=== PATIENT | female | born 1940 | race Native Hawaiian/Other Pacific Islander ===

== ENCOUNTER 2017-03-10 02:06 | Emergency (ER) | payer OTHER ==
[2017-03-10 02:22] VITALS: BMI 22.4
--- NOTE | 2017-03-10 02:24 | PDOC ---
History of Present Illness - History of Present Illness Initial Comments: 03/10/17 02:31 The patient is a 76 year old female, with a significant past medical history of HIV, VAD s/p stent, CHF, hypertension, dyslipidemia, COPD, diabetes, who presents to the emergency department for persistent vomiting with generalized weakness and fatigue since Wednesday. The patient reports being evaluated for these symptoms at [facility] on Wednesday and was discharged home. The patient reports numerous episodes of vomiting and states she is unable to tolerate PO. The patient also complains of mild, diffuse abdominal pain. She denies recent travels or sick contact. She reports recently changing her medication. She denies chest pain, shortness of breath, headache and dizziness. She denies fever, chills, diarrhea and constipation. She denies dysuria, frequency, urgency and hematuria. Allergies: as per nursing note PCP - Dr. Young <Linda Cox - Last Filed: 03/10/17 02:31> - General History Source: Patient, Family <Giancarlo Ko - Last Filed: 03/10/17 05:33> - General Chief Complaint: Nausea/Vomiting Stated Complaint: ABD PAIN Time Seen by Provider: 03/10/17 02:14 Past History <Linda Cox - Last Filed: 03/10/17 02:31> - Past Medical History Anemia: No Asthma: Yes Cancer: Yes (Breast) Cardiac Disorders: Yes CVA: Yes COPD: Yes CHF: Yes Diabetes: Yes GI Disorders: Yes (diverticulitsis) HTN: Yes Hypercholesterolemia: Yes HIV: Yes Suicide Attempt (Hx): No Seizures: Yes - Surgical History Abdominal Surgery: Yes (3 hernia surgery) Cardiac Surgery: Yes (1 stent 11-07-07) Orthopedic Surgery: Yes (herniated disc) - Immunization History Immunization Up to Date: No - Psycho/Social/Smoking Cessation Hx Anxiety: No Suicidal Ideation: No Smoking History: Former smoker Have you smoked in the past 12 months: No Number of Cigarettes Smoked Daily: 2 If you are a former smoker, when did you quit?: 1998 Information on smoking cessation initiated: No Hx Alcohol Use: No Drug/Substance Use Hx: No Substance Use Type: None Hx Substance Use Treatment: No <Giancarlo Ko - Last Filed: 03/10/17 05:33> - Past Medical History Allergies/Adverse Reactions: Allergies Allergy/AdvReac Type Severity Reaction Status Date / Time levofloxacin [From Levaquin] Allergy Unknown Verified 01/07/16 16:25 Penicillins Allergy Unknown Verified 01/07/16 16:25 phenytoin sodium Allergy Unknown Verified 01/07/16 16:25 [From Dilantin] phenytoin sodium extended Allergy Unknown Verified 01/07/16 16:25 [From Dilantin] sulfamethoxazole Allergy Unknown Verified 01/07/16 16:25 [From Bactrim] trimethoprim [From Bactrim] Allergy Unknown Verified 01/07/16 16:25 morphine Allergy Verified 01/07/16 16:25 Home Medications: Ambulatory Orders Efavirenz [Sustiva] 600 mg PO HS 02/11/15 Lamivudine/Zidovudine [Combivir Tablet] 1 each PO BID 02/11/15 Potassium Chloride [K-Dur] 20 meq PO DAILY 02/11/15 Sennosides [Senna -] 1 tab PO TID 02/11/15 Valsartan/Hydrochlorothiazide [Diovan Hct 160-25 mg Tablet] 1 tab PO DAILY 02/11 Levetiracetam [Keppra -] 750 mg PO BID #60 tablet 02/14/15 Pantoprazole Sodium [Protonix] 40 mg PO DAILY #60 tablet. 10/12/15 Zolpidem Tartrate [Ambien] 10 mg PO HS PRN #10 tablet 10/12/15 Cefuroxime Axetil [Ceftin -] 500 mg PO BIDPC #14 tablet 01/11/16 Lidocaine 5% Patch [Lidoderm -] 1 patch TP DAILY #30 patch 01/11/16 Ondansetron [Zofran *Odt*] 4 mg SL TID #30 od.tablet 03/10/17 Review of Systems - Review of Systems Able to Perform ROS?: Yes Comments:: 03/10/17 02:34 CONSTITUTIONAL: (+) generalized weakness, malaise,Absent: fever, chills, diaphoresis, loss of appetite HEENT: Absent: rhinorrhea, nasal congestion, throat pain, throat swelling, difficulty swallowing, mouth swelling, ear pain, eye pain, visual Changes CARDIOVASCULAR: Absent: chest pain, syncope, palpitations, irregular heart rate, lightheadedness , peripheral edema RESPIRATORY: Absent: cough, shortness of breath, dyspnea with exertion, orthopnea, wheezing, stridor, hemoptysis GASTROINTESTINAL: (+) abdominal pain, nausea, vomiting, Absent: abdominal distension, diarrhea, constipation, melena, hematochezia GENITOURINARY: Absent: dysuria, frequency, urgency, hesitancy, hematuria, flank pain, genital pain MUSCULOSKELETAL: Absent: myalgia, arthralgia, joint swelling SKIN: Absent: rash, itching, pallor HEMATOLOGIC/IMMUNOLOGIC: Absent: easy bleeding, easy bruising, lymphadenopathy, frequent infections ENDOCRINE: Absent: unexplained weight gain, unexplained weight loss, heat intolerance, cold intolerance NEUROLOGIC: Absent: headache, focal weakness or paresthesias, dizziness, unsteady gait, seizure, mental status changes, bladder or bowel incontinence PSYCHIATRIC: Absent: anxiety, depression, suicidal or homicidal ideation, hallucinations. <Linda Cox - Last Filed: 03/10/17 02:31> *Physical Exam - Vital Signs Last Vital Signs Temp Pulse Resp BP Pulse Ox 97.9 F 67 19 140/75 98 03/10/17 02:13 03/10/17 02:13 03/10/17 02:13 03/10/17 02:13 03/10/17 02:13 - Physical Exam Comments: 03/10/17 02:35 GENERAL: (+) Patient is in mild to moderate distress. Well developed, well nourished. Awake and alert. HEENT: (+) dry mucous membranes. Normocephalic, atraumatic. PERRLA, EOMI. No conjunctival pallor. Sclera are non-icteric. Oropharynx is clear. NECK: Supple. Full ROM. No JVD. Carotid pulses 2+ and symmetric, without bruits. No thyromegaly. No lymphadenopathy. CARDIOVASCULAR: Regular rate and rhythm. No murmurs, rubs, or gallops. Distal pulses are 2+ and symmetric. PULMONARY: No evidence of respiratory distress. Lungs clear to auscultation bilaterally. No wheezing, rales or rhonchi. ABDOMINAL: Soft. Non-tender. Non-distended. No rebound or guarding. No organomegaly. Normoactive bowel sounds. MUSCULOSKELETAL Normal range of motion at all joints. No bony deformities or tenderness. No CVA tenderness. EXTREMITIES: No cyanosis. No clubbing. No edema. No calf tenderness. SKIN: Warm and dry. Normal capillary refill. No rashes. No jaundice. NEUROLOGICAL: Alert, awake, appropriate. Cranial nerves 2-12 intact. Normoreflexic in the upper and lower extremities. Normal speech. Toes are down-going bilaterally. PSYCHIATRIC: Cooperative. Good eye contact. Appropriate mood and affect. <Linda Cox - Last Filed: 03/10/17 02:31> - Vital Signs Last Vital Signs Temp Pulse Resp BP Pulse Ox 97.9 F 67 19 140/75 98 03/10/17 02:13 03/10/17 02:13 03/10/17 02:13 03/10/17 02:13 03/10/17 02:13 <Giancarlo Ko - Last Filed: 03/10/17 05:33> ED Treatment Course - LABORATORY CBC & Chemistry Diagram: 03/10/17 02:38 03/10/17 03:17 <Giancarlo Ko - Last Filed: 03/10/17 05:33> Medical Decision Making - Medical Decision Making 03/10/17 05:33 Dr. Ko: The scribe's documentation has been prepared under my direction and personally reviewed by me in its entirery. I confirm that the note above accurately reflects all work, treatment, procedures, and medical decision making performed by me. <Giancarlo Ko - Last Filed: 03/10/17 05:33> *DC/Admit/Observation/Transfer - Attestations Scribe Attestion: 03/10/17 02:35 Documentation prepared by Linda Cox, acting as manager medical writing for Giancarlo Ko DO <Linda Cox - Last Filed: 03/10/17 02:31> - Discharge Dispostion Admit: No <Giancarlo Ko - Last Filed: 03/10/17 05:33> Diagnosis at time of Disposition: Abdominal pain Qualifiers: Abdominal location: generalized Qualified Code(s): R10.84 - Generalized abdominal pain - Discharge Dispostion Disposition: HOME Condition at time of disposition: Improved - Prescriptions Prescriptions: Ondansetron [Zofran *Odt*] 4 mg SL TID #30 od.tablet - Referrals Referrals: Tom Young MD [Primary Care Provider] - - Patient Instructions Printed Discharge Instructions: DI for Nausea -- Adult, DI for Vomiting -- Adult, DI for Abdominal Pain-Adult
[2017-03-10] MEDS ORDERED: SODIUM CHLORIDE 1,000 ML IV STA (02:25)
[2017-03-10] MEDS ORDERED: ONDANSETRON 4 MG/2 ML VIAL IVPUSH STA (02:26)
[2017-03-10] MEDS ORDERED: HYDROmorphone HCL CARPU-JECT 1 MG/1 ML DISP.SYRIN IVPUSH ONE (02:27)
[2017-03-10] MEDS ORDERED: ONDANSETRON 4 MG/2 ML VIAL ONE (02:35)
[2017-03-10] MEDS ORDERED: HYDROmorphone HCL CARPU-JECT 1 MG/1 ML DISP.SYRIN ONE (02:35)
[2017-03-10 02:46] LABS: MCH 28.2 pg (25.7-33.7); MCHC 33.2 g/dl (32.0-36.0); MEAN CELL VOLUME 85.1 fl (80-96); MEAN PLT VOLUME 8.1 fl (7.5-11.1); PLATELET COUNT 175 K/MM3 (134-434); RDW 19.6 % (11.6-15.6)
[2017-03-10 02:54] LABS: WHITE BLOOD COUNT 1.9 K/mm3 (4.0-10.0)
[2017-03-10 03:00] LABS: INR 1.14 (0.82-1.09); PROTHROMBIN TIME (PATIENT) 12.6 SEC (9.98-11.88)
[2017-03-10 04:17] LABS: ALBUMIN 2.8 g/dl (3.4-5.0); ANION GAP 11 (8-16); CALCIUM 8.1 mg/dL (8.5-10.1); CO2 17 mmol/L (21-32); CREATININE 0.9 mg/dL (0.55-1.02); GLUCOSE,RANDOM 101 mg/dL (74-106); MAGNESIUM 1.9 mg/dL (1.8-2.4); SGOT/AST 20 U/L (15-37); SGPT/ALT 27 U/L (12-78)
[2017-03-10 04:19] LABS: ALK PHOS 116 U/L (45-117); BILIRUBIN,TOTAL 0.4 mg/dL (0.2-1.0); TOT PROT 6.3 g/dl (6.4-8.2)
[2017-03-10] MEDS ORDERED: POTASSIUM CHLORIDE TABS 20 MEQ TABLET.ER (FP) PO ONE ×2 (04:48→04:56)
[2017-03-10 04:59] LABS: URINE APPEARANCE CLEAR; URINE BILIRUBIN NEGATIVE (NEGATIVE); URINE COLOR STRAW; URINE GLUCOSE (UA) NEGATIVE (NEGATIVE); URINE KETONE NEGATIVE (NEGATIVE); URINE LEUK ESTERASE NEGATIVE (NEGATIVE); URINE NITRITE NEGATIVE (NEGATIVE); URINE PROTEIN NEGATIVE (NEGATIVE); URINE UROBILINOGEN NEGATIVE E.U./dl (0.2-1.0)
[2017-03-10 05:08] LABS: URINE BLOOD 1+ (NEGATIVE)
[2017-03-10 05:10] LABS: URINE BACTERIA RARE /hpf (NONE SEEN); URINE MUCUS RARE; URINE RBC 4 /hpf (0-3); URINE WBC 1 /hpf (3-5)
[2017-03-10] MEDS ORDERED: KETOROLAC TROMETHAMINE 30 MG/1 ML VIAL IVPUSH ONE (05:30)
[2017-03-10] MEDS ORDERED: KETOROLAC TROMETHAMINE 30 MG/1 ML VIAL ONE (05:55)
[2017-03-10 06:09] VITALS: BP 137/76; PULSE 65; TEMP 98.1
== END 2017-03-10 06:28 | disposition home or self-care (01) ==
LOC: JER 02:06 → SUPCPDRO 02:06 → JER 06:28
PROC: 3E033NZ Introduction of Analgesics, Hypnotics, Sedatives into Peripheral Vein, Percutaneous Approach (ICD-10-PCS; principal; 2017-03-10)
PROC: 3E0333Z Introduction of Anti-inflammatory into Peripheral Vein, Percutaneous Approach (ICD-10-PCS; 2017-03-10)
PROC: 3E033GC Introduction of Other Therapeutic Substance into Peripheral Vein, Percutaneous Approach (ICD-10-PCS; 2017-03-10)
PROC: 3E0337Z Introduction of Electrolytic and Water Balance Substance into Peripheral Vein, Percutaneous Approach (ICD-10-PCS; 2017-03-10)
DX: R10.84 Generalized abdominal pain (principal); J45.909 Unspecified asthma, uncomplicated; I10 Essential (primary) hypertension; E78.00 Pure hypercholesterolemia, unspecified; Z21 Asymptomatic human immunodeficiency virus [HIV] infection status; E11.9 Type 2 diabetes mellitus without complications
CPT/HCPCS: 36415; 80053; 81003; 81015; 83690; 83735; 85025; 85610; 87086; 96361; 96374; 96375; 99283-25

== ENCOUNTER 2017-03-16 14:57 | Inpatient (IN) | payer OTHER ==
[2017-03-16 15:05] VITALS: BMI 20.6
--- NOTE | 2017-03-16 15:44 | PDOC ---
History of Present Illness - General History Source: Patient Exam Limitations: No Limitations - History of Present Illness Initial Comments: 03/16/17 17:06 The patient is a 76 year old female, with a significant past medical history of Breast CA, asthma, CVA, COPD, CHF, diabetes, HTN, HIV, HLD, diverticulitis, seizures and neuropathy,neck and back herniated disc, who presents to the emergency department after being sent by her PMD for evaluation. She reports that she was at [facility] last week for abdominal pain, nausea and vomiting. She was diagnosed with low blood count and was sent home. She followed up with her PMD who sent her to the ED for further evaluation. She reports that currently she does not have nausea or vomit and is able to eat without any complications. She states that she currently has back pain and lung pain. She also notes that she also has frequency associated with her chief complaint. She states that she took 2 Advils today without any relief of her symptoms. The patient denies chest pain, shortness of breath, headache and dizziness. Denies fever, chills, diarrhea and constipation. Denies dysuria, frequency, urgency and hematuria. Allergies: levofloxacin, dilantin, penicillins, bactrim, potassium chloride, morphine Past surgical history: Cardiac Stent (x1) 11-07-07, abdominal hernia surgery (x3 ), herniated disc surgery. Social history: Former smoker. No alcohol or drug use reported PMD - Dr. Tom Young <Giancarlo Bryant - Last Filed: 03/16/17 17:09> - General History Source: Patient Exam Limitations: No Limitations <Doreen Alvarez - Last Filed: 03/16/17 17:45> - General Chief Complaint: Pain Stated Complaint: ABD PAIN (PCP SENT FOR ADMIN) Time Seen by Provider: 03/16/17 15:40 Past History <Giancarlo Bryant - Last Filed: 03/16/17 17:09> - Past Medical History Anemia: No Asthma: Yes Cancer: Yes (Breast) Cardiac Disorders: Yes CVA: Yes COPD: Yes CHF: Yes Diabetes: Yes GI Disorders: Yes (diverticulitsis) HTN: Yes Hypercholesterolemia: Yes HIV: Yes Suicide Attempt (Hx): No Seizures: Yes Other medical history: neuropathy,neck and back herniated disc, o.p - Surgical History Abdominal Surgery: Yes (3 hernia surgery) Cardiac Surgery: Yes (1 stent 11-07-07) Orthopedic Surgery: Yes (herniated disc) - Immunization History Immunization Up to Date: No - Psycho/Social/Smoking Cessation Hx Anxiety: No Suicidal Ideation: No Smoking History: Former smoker Have you smoked in the past 12 months: No Number of Cigarettes Smoked Daily: 2 If you are a former smoker, when did you quit?: 1998 Information on smoking cessation initiated: No Hx Alcohol Use: No Drug/Substance Use Hx: No Substance Use Type: None Hx Substance Use Treatment: No <Doreen Alvarez - Last Filed: 03/16/17 17:45> - Past Medical History Allergies/Adverse Reactions: Allergies Allergy/AdvReac Type Severity Reaction Status Date / Time levofloxacin [From Levaquin] Allergy Unknown Verified 03/16/17 14:58 Penicillins Allergy Unknown Verified 03/16/17 14:58 phenytoin sodium Allergy Unknown Verified 03/16/17 14:58 [From Dilantin] phenytoin sodium extended Allergy Unknown Verified 03/16/17 14:58 [From Dilantin] sulfamethoxazole Allergy Unknown Verified 03/16/17 14:58 [From Bactrim] trimethoprim [From Bactrim] Allergy Unknown Verified 03/16/17 14:58 morphine Allergy Verified 03/16/17 14:58 potassium chloride Allergy Verified 03/16/17 14:58 Home Medications: Ambulatory Orders Efavirenz [Sustiva] 600 mg PO HS 02/11/15 Lamivudine/Zidovudine [Combivir Tablet] 1 each PO BID 02/11/15 Potassium Chloride [K-Dur] 20 meq PO DAILY 02/11/15 Sennosides [Senna -] 1 tab PO TID 02/11/15 Valsartan/Hydrochlorothiazide [Diovan Hct 160-25 mg Tablet] 1 tab PO DAILY 02/11 Levetiracetam [Keppra -] 750 mg PO BID #60 tablet 02/14/15 Pantoprazole Sodium [Protonix] 40 mg PO DAILY #60 tablet. 10/12/15 Zolpidem Tartrate [Ambien] 10 mg PO HS PRN #10 tablet 10/12/15 Cefuroxime Axetil [Ceftin -] 500 mg PO BIDPC #14 tablet 01/11/16 Lidocaine 5% Patch [Lidoderm -] 1 patch TP DAILY #30 patch 01/11/16 Ondansetron [Zofran *Odt*] 4 mg SL TID #30 od.tablet 03/10/17 Review of Systems - Review of Systems Able to Perform ROS?: Yes Comments:: 03/16/17 17:06 GENERAL/CONSTITUTIONAL: No: fever, chills, weakness, loss of appetite. HEAD, EYES, EARS, NOSE AND THROAT: No: change in vision, ear pain, discharge, sore throat, throat swelling. CARDIOVASCULAR: No: chest pain, lightheadedness, palpitations, syncope RESPIRATORY: No: cough, shortness of breath, wheezing, hemoptysis, stridor. GASTROINTESTINAL: (+) Nausea, vomiting, abdominal cramping. No: diarrhea, rectal bleeding, constipation. GENITOURINARY: No: dysuria, hematuria, frequency, urgency, flank pain. MUSCULOSKELETAL: (+) Back pain. No: neck pain, joint pain, muscle swelling or pain SKIN AND BREASTS: No: lesions, pallor, rash or easy bruising. NEUROLOGIC: No: headache, vertigo, paresthesias, weakness ENDOCRINE: No: unexplained weight gain or loss HEMATOLOGIC/LYMPHATIC: No: anemia, easy bleeding, swelling nodes <Giancarlo Bryant - Last Filed: 03/16/17 17:09> *Physical Exam - Vital Signs Last Vital Signs Temp Pulse Resp BP Pulse Ox 97.5 F L 78 18 143/74 98 03/16/17 15:00 03/16/17 15:00 03/16/17 15:00 03/16/17 15:00 03/16/17 15:00 - Physical Exam Comments: 03/16/17 17:07 GENERAL: The patient is in no acute distress. HEAD: Normal with no signs of trauma. EYES: PERRLA, EOMI, sclera anicteric, conjunctiva clear. ENT: Ears normal, nares patent, oropharynx clear without exudates. Moist mucous membranes. NECK: Normal range of motion, supple without lymphadenopathy, JVD, or masses. LUNGS: Breath sounds equal, clear to auscultation bilaterally. No wheezes, and no crackles. HEART:Regular rate and rhythm, normal S1 and S2 without murmur, rub or gallop. ABDOMEN: Soft, nontender, normoactive bowel sounds. No guarding, no rebound. EXTREMITIES: Normal range of motion, no edema. No clubbing or cyanosis. No erythema, or tenderness. NEUROLOGICAL: Cranial nerves II through XII grossly intact. Normal speech. No focal neurological deficits. MUSCULOSKELETAL: Back non-tender to palpation, no CVA tenderness SKIN: Warm, Dry, normal turgor, no rashes or lesions noted. <Giancarlo Bryant - Last Filed: 03/16/17 17:09> - Vital Signs Last Vital Signs Temp Pulse Resp BP Pulse Ox 97.5 F L 78 18 143/74 98 03/16/17 15:00 03/16/17 15:00 03/16/17 15:00 03/16/17 15:00 03/16/17 15:00 <Doreen Alvarez - Last Filed: 03/16/17 17:45> Heart Score/ECG Review #1 ECG reviewed & interpreted by me at: 16:20 General ECG Interpretation: Sinus Rhythm, Normal Rate, Normal Intervals, No acute ischemic changes <Doreen Alvarez - Last Filed: 03/16/17 17:45> ED Treatment Course - LABORATORY CBC & Chemistry Diagram: 03/16/17 16:30 03/16/17 16:30 - RADIOLOGY Radiograph Interpretation: 03/16/17 17:09 Chest X-Ray Reviewed by: Dr. Trina Carmen Impression: Stable faintly seen pulmonary nodule in the left mid lung, laterally likely representing a granuloma. Otherwise, no acute lung disease is present. <Giancarlo Bryant - Last Filed: 03/16/17 17:09> - LABORATORY CBC & Chemistry Diagram: 03/16/17 16:30 03/16/17 16:30 - RADIOLOGY Radiology Studies Ordered: Category Date Time Status CHEST X-RAY PORTABLE* [RAD] Stat Radiology 03/16/17 15:41 Ordered <Doreen Alvarez - Last Filed: 03/16/17 17:45> Medical Decision Making - Medical Decision Making 03/16/17 15:43 A portion of this note was documented by scribe services under my direction. I have reviewed the details of the note, within reason, and agree with the documentation with the following case summary and management plan written by me. Nursing documentation reviewed and incorporated into medical decision making 03/16/17 17:16 This pt is a 76 yo F w a h/o HIV, CAD s/p stent, CHF, hypertension, dyslipidemia , COPD, diabetes, who presents to the emergency department for persistent vomiting with generalized weakness. She was seen by her PMD who requested that she be admitted Pt denies fevers Pt denies vomiting or diarrhea Pt states she has abd pain Will do labs Pt sent to the ER for admission Pt seen by PMD Will admit Will do CT abd and pelvis 03/16/17 17:38 Laboratory Tests 03/16/17 03/16/17 16:30 16:30 WBC 2.8 L D Hgb 10.0 L Hct 30.9 L Plt Count 174 Sodium 141 Potassium 3.5 Chloride 108 H Carbon Dioxide 20 L Anion Gap 13 BUN 20 H D Creatinine 0.8 Random Glucose 96 Pt seen by PMD Will admit <Doreen Alvarez - Last Filed: 03/16/17 17:45> *DC/Admit/Observation/Transfer - Attestations Scribe Attestion: 03/16/17 17:07 Documentation prepared by Giancarlo Bryant, acting as medical staff coordinator for Doreen Alvarez MD <Giancarlo Bryant - Last Filed: 03/16/17 17:09> - Discharge Dispostion Admit: Yes <Doreen Alvarez - Last Filed: 03/16/17 17:45> Diagnosis at time of Disposition: Gastroparesis, Nausea & vomiting - Discharge Dispostion Condition at time of disposition: Stable - Referrals Referrals: Tom Young MD [Primary Care Provider] -
[2017-03-16 16:42] LABS: MCH 27.8 pg (25.7-33.7); MCHC 32.2 g/dl (32.0-36.0); MEAN CELL VOLUME 86.2 fl (80-96); MEAN PLT VOLUME 7.8 fl (7.5-11.1); PLATELET COUNT 174 K/MM3 (134-434); RDW 18.5 % (11.6-15.6); WHITE BLOOD COUNT 2.8 K/mm3 (4.0-10.0)
[2017-03-16] MEDS ORDERED: HYDROmorphone HCL CARPU-JECT 1 MG/1 ML DISP.SYRIN IVPB ONE (17:04)
[2017-03-16 17:25] LABS: ALBUMIN 2.9 g/dl (3.4-5.0); AMYLASE 89 U/L (25-115); ANION GAP 13 (8-16); CALCIUM 8.6 mg/dL (8.5-10.1); CO2 20 mmol/L (21-32); CREATININE 0.8 mg/dL (0.55-1.02); GLUCOSE,RANDOM 96 mg/dL (74-106); SGOT/AST 38 U/L (15-37); SGPT/ALT 32 U/L (12-78)
[2017-03-16 17:27] LABS: BILIRUBIN,TOTAL 0.3 mg/dL (0.2-1.0); TOT PROT 6.9 g/dl (6.4-8.2)
[2017-03-16] MEDS ORDERED: HYDROmorphone HCL CARPU-JECT 1 MG/1 ML DISP.SYRIN ONE (17:28)
[2017-03-16 17:38] LABS: URINE APPEARANCE CLEAR; URINE BILIRUBIN NEGATIVE (NEGATIVE); URINE BLOOD NEGATIVE (NEGATIVE); URINE COLOR LTYELLOW; URINE GLUCOSE (UA) NEGATIVE (NEGATIVE); URINE KETONE NEGATIVE (NEGATIVE); URINE LEUK ESTERASE NEGATIVE (NEGATIVE); URINE NITRITE NEGATIVE (NEGATIVE); URINE UROBILINOGEN NEGATIVE E.U./dl (0.2-1.0)
[2017-03-16 17:44] LABS: URINE PROTEIN 1+ (NEGATIVE)
[2017-03-16 17:46] LABS: URINE MUCUS RARE; URINE RBC 3 /hpf (0-3); URINE WBC 1 /hpf (3-5)
[2017-03-16 18:01] LABS: ALK PHOS 169 U/L (45-117)
[2017-03-16 19:48] LABS: PLATELET ESTIMATE ADEQUATE (NORMAL)
--- NOTE | 2017-03-16 20:48 | HP ---
Admitting History and Physical - Primary Care Physician PCP: Tom Young - Admission Chief Complaint: ABD/BACK PAIN/LEUKOPENIA/HIV + History of Present Illness: The patient is a 76 year old female, with a significant past medical history of Breast CA, asthma, CVA, COPD, CHF, diabetes, HTN, HIV, HLD, diverticulitis, seizures and neuropathy,neck and back herniated disc, who presents to the emergency department after being sent by her PMD for evaluation. She reports that she was at [facility] last week for abdominal pain, nausea and vomiting. She was diagnosed with low blood count and was sent home. She followed up with her PMD who sent her to the ED for further evaluation. She reports that currently she does not have nausea or vomit and is able to eat without any complications. She states that she currently has back pain and lung pain. She also notes that she also has frequency associated with her chief complaint. She states that she took 2 Advils today without any relief of her symptoms. The patient denies chest pain, shortness of breath, headache and dizziness. Denies fever, chills, diarrhea and constipation. Denies dysuria, frequency, urgency and hematuria. History Source: Patient, Family Member - Past Medical History SITE PLANNER: Yes: Seizure. No: Alzheimer's Cardiovascular: Yes: CAD (s/p PCI 2008), CHF, HTN, Hyperlipdemia Pulmonary: Yes: Asthma Gastrointestinal: Yes: GERD Infectious Disease: Yes: HIV (on meds- infected 11 yrs ago) - Past Surgical History Past Surgical History: Yes: , Stent - Smoking History Smoking history: Former smoker Have you smoked in the past 12 months: No Aproximately how many cigarettes per day: 2 If you are a former smoker, when did you quit?: 1998 - Alcohol/Substance Use Hx Alcohol Use: No - Social History ADL: Independent History of Recent Travel: No Home Medications - Allergies Allergies/Adverse Reactions: Allergies Allergy/AdvReac Type Severity Reaction Status Date / Time levofloxacin [From Levaquin] Allergy Unknown Verified 03/16/17 14:58 Penicillins Allergy Unknown Verified 03/16/17 14:58 phenytoin sodium Allergy Unknown Verified 03/16/17 14:58 [From Dilantin] phenytoin sodium extended Allergy Unknown Verified 03/16/17 14:58 [From Dilantin] sulfamethoxazole Allergy Unknown Verified 03/16/17 14:58 [From Bactrim] trimethoprim [From Bactrim] Allergy Unknown Verified 03/16/17 14:58 morphine Allergy Verified 03/16/17 14:58 potassium chloride Allergy Verified 03/16/17 14:58 - Home Medications Home Medications: Ambulatory Orders Efavirenz [Sustiva] 600 mg PO HS 02/11/15 Lamivudine/Zidovudine [Combivir Tablet] 1 each PO BID 02/11/15 Potassium Chloride [K-Dur] 20 meq PO DAILY 02/11/15 Sennosides [Senna -] 1 tab PO TID 02/11/15 Valsartan/Hydrochlorothiazide [Diovan Hct 160-25 mg Tablet] 1 tab PO DAILY 02/11 Levetiracetam [Keppra -] 750 mg PO BID #60 tablet 02/14/15 Pantoprazole Sodium [Protonix] 40 mg PO DAILY #60 tablet. 10/12/15 Zolpidem Tartrate [Ambien] 10 mg PO HS PRN #10 tablet 10/12/15 Cefuroxime Axetil [Ceftin -] 500 mg PO BIDPC #14 tablet 01/11/16 Lidocaine 5% Patch [Lidoderm -] 1 patch TP DAILY #30 patch 01/11/16 Ondansetron [Zofran *Odt*] 4 mg SL TID #30 od.tablet 03/10/17 Review of Systems - Review of Systems Constitutional: reports: Lethargy, Loss of Appetite, Weakness Eyes: reports: No Symptoms HENT: reports: No Symptoms Neck: reports: No Symptoms Cardiovascular: reports: Shortness of Breath Respiratory: reports: No Symptoms Gastrointestinal: reports: Abdominal Pain, Vomiting Genitourinary: reports: No Symptoms Musculoskeletal: reports: Back Pain, Joint Pain, Muscle Weakness Integumentary: reports: No Symptoms Neurological: reports: Weakness Endocrine: reports: No Symptoms Hematology/Lymphatic: reports: No Symptoms Psychiatric: reports: No Symptoms, Depression Physical Examination Vital Signs: Vital Signs Temperature 97.6 F 03/16/17 19:00 Pulse Rate 69 03/16/17 19:00 Respiratory Rate 20 03/16/17 19:00 Blood Pressure 145/80 03/16/17 19:00 O2 Sat by Pulse Oximetry (%) 100 03/16/17 19:00 Constitutional: Yes: Mild Distress Eyes: Yes: WNL HENT: Yes: WNL Neck: Yes: WNL Cardiovascular: Yes: WNL Respiratory: Yes: WNL Gastrointestinal: Yes: Tenderness Renal/: Yes: WNL Musculoskeletal: Yes: Back Pain, Muscle Pain, Muscle Weakness Extremities: Yes: WNL Edema: No Peripheral Pulses WNL: Yes Integumentary: Yes: WNL Wound/Incision: Yes: Clean/Dry Neurological: Yes: Pre-Existing Deficit, Weakness ...Motor Strength: LLE, RLE Psychiatric: Yes: Other Imaging - Results Cat Scan: Pending Problem List - Problems (1) Gastroparesis Code(s): K31.84 - GASTROPARESIS (2) Nausea & vomiting Code(s): R11.2 - NAUSEA WITH VOMITING, UNSPECIFIED (3) AIDS dementia complex Code(s): B20 - HUMAN IMMUNODEFICIENCY VIRUS [HIV] DISEASE F02.80 - DEMENTIA IN OTH DISEASES CLASSD ELSWHR W/O BEHAVRL DISTURB (4) Abdominal pain Code(s): R10.9 - UNSPECIFIED ABDOMINAL PAIN (5) Anemia Code(s): D64.9 - ANEMIA, UNSPECIFIED (6) DM (diabetes mellitus) type II controlled peripheral vascular disorder Code(s): E11.51 - TYPE 2 DIABETES W DIABETIC PERIPHERAL ANGIOPATH W/O GANGRENE (7) Decreased oral intake Code(s): R63.8 - OTHER SYMPTOMS AND SIGNS CONCERNING FOOD AND FLUID INTAKE (8) HIV (human immunodeficiency virus infection) Code(s): Z21 - ASYMPTOMATIC HUMAN IMMUNODEFICIENCY VIRUS INFECTION STATUS (9) Weight loss Code(s): R63.4 - ABNORMAL WEIGHT LOSS (10) Leukopenia Code(s): D72.819 - DECREASED WHITE BLOOD CELL COUNT, UNSPECIFIED Assessment/Plan POOR PO INTAKE ABD/BACK PAIN N/V GI EVAL ID CONSULT IVF R/O AIDS NEOPLASM VS MALNUTRITION APPETITE STIMULANT
[2017-03-16] MEDS ORDERED: ZOLPIDEM TARTRATE 5 MG TABLET PO PRN (20:58)
[2017-03-16] MEDS ORDERED: levETIRAcetam 500 MG TABLET (FP) PO ONE (22:30)
[2017-03-16] MEDS ORDERED: ACETAMINOPHEN 325 MG TABLET (FP) ONE (23:34)
--- NOTE | 2017-03-16 23:53 | HOSP ---
Subjective - Review of Symptoms Events since last encounter: nurse called to report pt fell. Fell while going to commode. Subjective: Pt c/o pain. Pain in her back that is the same as when she came in and pain in her left knee that is new. Physical Examination Vital Signs: Vital Signs Temperature 97.6 F 03/16/17 19:00 Pulse Rate 69 03/16/17 19:00 Respiratory Rate 20 03/16/17 19:00 Blood Pressure 145/80 03/16/17 19:00 O2 Sat by Pulse Oximetry (%) 100 03/16/17 19:00 Extremities: Yes: Other (FROM all joints. + tenderness to lumbar spine. Left knee without pain on palpation and no pain on ROM) Hospitalist Encounter Assessment: s/p fall with knee pain - no indication for imaging at this time. reassess if pain worsens. - RN called PCP to notify, PCP to f/u in am
[2017-03-17] MEDS: lamiVUDine/ZIDOVUDINE 150/300 1 COMBO TABLET PO SCH ×3 (00:40→22:56)
[2017-03-17] MEDS: levETIRAcetam 500 MG TABLET (FP) PO SCH ×3 (00:40→22:57)
[2017-03-17] MEDS: SENNOSIDES 8.6MG TABLET (FP) PO SCH ×2 (00:40→22:57)
[2017-03-17] MEDS ORDERED: IBUPROFEN 400 MG TABLET (FP) PO ONE (06:45)
[2017-03-17 07:34] LABS: MCHC 32.9 g/dl (32.0-36.0); MEAN PLT VOLUME 7.8 fl (7.5-11.1); PLATELET COUNT 169 K/MM3 (134-434); RDW 18.8 % (11.6-15.6); WHITE BLOOD COUNT 2.9 K/mm3 (4.0-10.0)
[2017-03-17 08:03] LABS: ALBUMIN 2.7 g/dl (3.4-5.0); ANION GAP 13 (8-16); CALCIUM 7.9 mg/dL (8.5-10.1); CO2 17 mmol/L (21-32); CREATININE 0.8 mg/dL (0.55-1.02); SGOT/AST 53 U/L (15-37); SGPT/ALT 37 U/L (12-78); TOT PROT 6.4 g/dl (6.4-8.2)
[2017-03-17 08:09] LABS: ALK PHOS 165 U/L (45-117); BILIRUBIN,TOTAL 0.4 mg/dL (0.2-1.0); CHOLESTEROL 123 mg/dL (50-200); GLUCOSE,RANDOM 88 mg/dL (74-106); LDL CHOLESTEROL (ONLY SJRH) 70 mg/dL (5-100)
[2017-03-17] MEDS ORDERED: PT OWN MED DRAWER 7, Y5N ONE ×2 (10:16→12:16)
[2017-03-17] MEDS: VALSARTAN 160 MG TABLET (UD) PO SCH (10:23)
[2017-03-17] MEDS: PANTOPRAZOLE 40 MG TABLET (FP) PO SCH (10:24)
[2017-03-17] MEDS: EFAVIRENZ 600 MG TABLET PO SCH (12:11)
[2017-03-17 12:49] LABS: URINE APPEARANCE CLEAR; URINE BILIRUBIN NEGATIVE (NEGATIVE); URINE COLOR STRAW; URINE GLUCOSE (UA) NEGATIVE (NEGATIVE); URINE KETONE NEGATIVE (NEGATIVE); URINE LEUK ESTERASE NEGATIVE (NEGATIVE); URINE NITRITE NEGATIVE (NEGATIVE); URINE UROBILINOGEN NEGATIVE E.U./dl (0.2-1.0)
[2017-03-17 12:56] LABS: URINE BLOOD 1+ (NEGATIVE); URINE PROTEIN 1+ (NEGATIVE)
--- NOTE | 2017-03-17 13:28 | EKG ---
Test Reason : Blood Pressure : / mmHG Vent. Rate : 073 BPM Atrial Rate : 073 BPM P-R Int : 158 ms QRS Dur : 072 ms QT Int : 380 ms P-R-T Axes : 052 038 049 degrees QTc Int : 418 ms POOR DATA QUALITY, INTERPRETATION MAY BE ADVERSELY AFFECTED NORMAL SINUS RHYTHM NORMAL ECG WHEN COMPARED WITH ECG OF 10-JAN-2016 10:19, NO SIGNIFICANT CHANGE WAS FOUND Confirmed by ZELDA ZHENG MD ([id number]) on 03/17/2017 1:27:50 PM Referred By: Confirmed By:ZELDA ZHENG MD
[2017-03-17 13:42] LABS: URINE BACTERIA RARE /hpf (NONE SEEN); URINE MUCUS RARE; URINE RBC <1 /hpf (0-3); URINE WBC <1 /hpf (3-5)
--- NOTE | 2017-03-17 14:23 | CONSULT ---
Consult Consult Specialty:: Surgery Referred by:: Dr Young Reason for Consultation:: Abdominal/back pain - History of Present Illness History of Present Illness: 76 year old female, with a significant past medical history of Breast CA, asthma , CVA, COPD, CHF, diabetes, HTN, HIV, HLD, diverticulitis, seizures and neuropathy,neck and back herniated disc, who presents to the emergency department after being sent by her PMD for evaluation. She was at [facility] last week for abdominal pain, nausea and vomiting. She was diagnosed with low blood count and was sent home. She followed up with her PMD who sent her to the ED for further evaluation. Currently she does not have nausea or vomit and is able to eat without any complications. She states that she currently has back pain and lung pain. She also notes that she also has frequency associated with her chief complaint. She states that she took 2 Advils today without any relief of her symptoms. 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 No: Alzheimer's Cardio/Vascular: Yes: CAD (s/p PCI 2008), CHF, HTN, Hyperlipdemia Pulmonary: Yes: Asthma Gastrointestinal: Yes: GERD Infectious Disease: Yes: HIV (on meds- infected 11 yrs ago) - Past Surgical History Past Surgical History: Yes: , Stent - Alcohol/Substance Use Hx Alcohol Use: No - Smoking History Smoking history: Former smoker Have you smoked in the past 12 months: No Aproximately how many cigarettes per day: 2 If you are a former smoker, when did you quit?: 1998 - Social History ADL: Independent History of Recent Travel: No Home Medications - Allergies Allergies/Adverse Reactions: Allergies Allergy/AdvReac Type Severity Reaction Status Date / Time levofloxacin [From Levaquin] Allergy Unknown Verified 03/16/17 14:58 Penicillins Allergy Unknown Verified 03/16/17 14:58 phenytoin sodium Allergy Unknown Verified 03/16/17 14:58 [From Dilantin] phenytoin sodium extended Allergy Unknown Verified 03/16/17 14:58 [From Dilantin] sulfamethoxazole Allergy Unknown Verified 03/16/17 14:58 [From Bactrim] trimethoprim [From Bactrim] Allergy Unknown Verified 03/16/17 14:58 morphine Allergy Verified 03/16/17 14:58 potassium chloride Allergy Verified 03/16/17 14:58 - Home Medications Home Medications: Ambulatory Orders Efavirenz [Sustiva] 600 mg PO HS 02/11/15 Lamivudine/Zidovudine [Combivir Tablet] 1 each PO BID 02/11/15 Potassium Chloride [K-Dur] 20 meq PO DAILY 02/11/15 Sennosides [Senna -] 1 tab PO TID 02/11/15 Valsartan/Hydrochlorothiazide [Diovan Hct 160-25 mg Tablet] 1 tab PO DAILY 02/11 Levetiracetam [Keppra -] 750 mg PO BID #60 tablet 02/14/15 Pantoprazole Sodium [Protonix] 40 mg PO DAILY #60 tablet. 10/12/15 Zolpidem Tartrate [Ambien] 10 mg PO HS PRN #10 tablet 10/12/15 Cefuroxime Axetil [Ceftin -] 500 mg PO BIDPC #14 tablet 01/11/16 Lidocaine 5% Patch [Lidoderm -] 1 patch TP DAILY #30 patch 01/11/16 Ondansetron [Zofran *Odt*] 4 mg SL TID #30 od.tablet 03/10/17 Family Disease History - Family Disease History Family History: Denies Review of Systems - Review of Systems Constitutional: denies: Chills, Fever HENT: reports: No Symptoms Neck: reports: No Symptoms Cardiovascular: denies: Chest Pain Respiratory: denies: Cough Gastrointestinal: denies: Abdominal Pain, Diarrhea, Nausea Genitourinary: reports: No Symptoms Neurological: denies: Change in LOC Pain Intensity: 4 Physical Exam Vital Signs: Vital Signs Temperature 97.7 F 03/17/17 09:32 Pulse Rate 77 03/17/17 09:32 Respiratory Rate 20 03/17/17 09:32 Blood Pressure 102/54 03/17/17 09:32 O2 Sat by Pulse Oximetry (%) 97 03/17/17 03:05 HENT: Yes: WNL Cardiovascular: Yes: WNL Respiratory: Yes: Regular Gastrointestinal: Yes: Soft. No: Distention, Tenderness, Tenderness, Rebound Neurological: Yes: Alert, Oriented Labs: CBC, BMP 03/17/17 06:15 03/17/17 06:15 Imaging - Results Cat Scan: Report Reviewed, Image Reviewed Problem List - Problems (1) Abdominal pain Code(s): R10.9 - UNSPECIFIED ABDOMINAL PAIN Qualifiers: Abdominal location: unspecified location Qualified Code(s): R10.9 - Unspecified abdominal pain Assessment/Plan 76 female with back/flank pain CT shows a slightly overdistended gallbladder but no stones or wall thickening, colonic fecal residue, Right renal hydronephrosis No free air No acute abdominal pathology seen on imaging Possibly related to right hydronephrosis or more likely from herniated discs seen on imaging as pain is mostly in the right flank/back No general surgery intervention at this time Neurology vs Neurosurgery consult for back pain/herniated discs Possible urology evaluation for hydronephrosis Thank you
[2017-03-17] MEDS: HYDROmorphone HCL CARPU-JECT 1 MG/1 ML DISP.SYRIN IVPB PRN (15:05)
--- NOTE | 2017-03-17 17:53 | CON.GI ---
Consult Consult Specialty:: GI Referred by:: Tom Young - History of Present Illness Chief Complaint: anemia, abdominal pain History of Present Illness: The patient is a 76 year old female, with a significant past medical history of Breast CA, asthma, CVA, COPD, CHF, diabetes, HTN, HIV, HLD, diverticulitis, seizures and neuropathy,neck and back herniated disc, who presents to the emergency department after being sent by her PMD for evaluation. She reports that she was at [facility] last week for abdominal pain, nausea and vomiting. She was diagnosed with low blood count and was sent home. She followed up with her PMD who sent her to the ED for further evaluation. She reports that currently she does not have nausea or vomit and is able to eat without any complications. She states that she currently has back pain and lung pain. She also notes that she also has frequency associated with her chief complaint. She states that she took 2 Advils today without any relief of her symptoms. The patient denies chest pain, shortness of breath, headache and dizziness. Denies fever, chills, diarrhea and constipation. Denies dysuria, frequency, urgency and hematuria. The patient underwent EGD and colonoscopy with Dr Frank . There was an ulcer in the rectum and melanosis coli. EGD was consistent with gastritis, there were no ulcers noted. 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 No: Alzheimer's Cardio/Vascular: Yes: CAD (s/p PCI 2008), CHF, HTN, Hyperlipdemia Pulmonary: Yes: Asthma Gastrointestinal: Yes: GERD Infectious Disease: Yes: HIV (on meds- infected 11 yrs ago) - Past Surgical History Past Surgical History: Yes: , Stent - Alcohol/Substance Use Hx Alcohol Use: No - Smoking History Smoking history: Former smoker Have you smoked in the past 12 months: No Aproximately how many cigarettes per day: 2 If you are a former smoker, when did you quit?: 1998 - Social History ADL: Independent History of Recent Travel: No Home Medications - Allergies Allergies/Adverse Reactions: Allergies Allergy/AdvReac Type Severity Reaction Status Date / Time levofloxacin [From Levaquin] Allergy Unknown Verified 03/16/17 14:58 Penicillins Allergy Unknown Verified 03/16/17 14:58 phenytoin sodium Allergy Unknown Verified 03/16/17 14:58 [From Dilantin] phenytoin sodium extended Allergy Unknown Verified 03/16/17 14:58 [From Dilantin] sulfamethoxazole Allergy Unknown Verified 03/16/17 14:58 [From Bactrim] trimethoprim [From Bactrim] Allergy Unknown Verified 03/16/17 14:58 morphine Allergy Verified 03/16/17 14:58 potassium chloride Allergy Verified 03/16/17 14:58 - Home Medications Home Medications: Ambulatory Orders Efavirenz [Sustiva] 600 mg PO HS 02/11/15 Lamivudine/Zidovudine [Combivir Tablet] 1 each PO BID 02/11/15 Potassium Chloride [K-Dur] 20 meq PO DAILY 02/11/15 Sennosides [Senna -] 1 tab PO TID 02/11/15 Valsartan/Hydrochlorothiazide [Diovan Hct 160-25 mg Tablet] 1 tab PO DAILY 02/11 Levetiracetam [Keppra -] 750 mg PO BID #60 tablet 02/14/15 Pantoprazole Sodium [Protonix] 40 mg PO DAILY #60 tablet. 10/12/15 Zolpidem Tartrate [Ambien] 10 mg PO HS PRN #10 tablet 10/12/15 Cefuroxime Axetil [Ceftin -] 500 mg PO BIDPC #14 tablet 01/11/16 Lidocaine 5% Patch [Lidoderm -] 1 patch TP DAILY #30 patch 01/11/16 Ondansetron [Zofran *Odt*] 4 mg SL TID #30 od.tablet 03/10/17 Physical Exam-GI Vital Signs: Vital Signs Temperature 97.4 F L 03/17/17 14:20 Pulse Rate 68 03/17/17 14:20 Respiratory Rate 16 03/17/17 14:20 Blood Pressure 114/59 03/17/17 14:20 O2 Sat by Pulse Oximetry (%) 99 03/17/17 09:00 Constitutional: Yes: Well Nourished Eyes: Yes: Conjunctiva Clear Neck: Yes: Supple, Tenderness Respiratory: Yes: CTA Bilaterally ...Palpate: No: Firm/Rigid, Guarding, Hepatomegaly, Mass, Pulsatile Mass, Splenomegaly, Tenderness Labs: CBC, BMP 03/17/17 06:15 03/17/17 06:15 Imaging - Results Cat Scan: Report Reviewed Problem List - Problems (1) Anemia Assessment/Plan: no active GI bleeding at this time , recent gi w/u by Dr Frank did not reveal active bleeding lesions R> Hematology consult discussed with Dr Young Code(s): D64.9 - ANEMIA, UNSPECIFIED (2) Hydronephrosis Assessment/Plan: consider Urology consult Code(s): N13.30 - UNSPECIFIED HYDRONEPHROSIS
--- NOTE | 2017-03-17 19:37 | CONSULT ---
Consult - text type - Consultation Consultation Note: NEUROLOGY CONSULTATION is greatly appreciated: This 76 yo woman lives alone. PMH sig for HTN, DM, Chol, COPD/asthma, Breast Ca, HIV+, ASHD, s/p stent, anemia , and seizure disorder. On levetiracetam, sustiva, combivir, diovan HCT, protonix,ceftin and zofran. Multiple antibiotic allergies. Was seen at [facility] last week with c/o nausea and vomiting. Told she was anemic and d/c'ed. Now admitted with diffuse pain in her spine, arms and legs. CT scans of the thoracic and LS spines show DJD but no acute lesions. Now c/o feeling cold. Temp= 101.7. Neck supple. Kernig's negative Uncomfortable. Diffuse chills and rigors. Awake, alert. well-oriented. Diffuse limb and spinal palpation tenderness. Speech sparse but fluent. CN II-XII: normal Motor: No drift or tremor. Normal strength. Depressed reflexes. Plantars silent. Coord: No FTN dystaxia Sensory: Reduced vibration over the feet. Gait: Not tested. IMP: Non-focal neurological exam. Probable Peripheral neuropathy. Toxic-metabolic encephalopathy due to infection. Diffuse Myalgias over the last few days is c/w flu but would endeavor to r/o Subacute Bacterial endocarditis (SBE). SUGGEST: Await ID consult. Additional 2 blood cultures sent. Urine pending. Check ESR, CRP, B12, TSH. Thank you very much, Rajeev Ramirez MD
[2017-03-17] MEDS ORDERED: AZTREONAM 1 GM in DEXTROSE 5%-WATER - 50 ML IVPB SCH ×2 (20:30→20:45)
[2017-03-17] MEDS ORDERED: VANCOMYCIN 1 GRAM (PRE-DOCKED) 250 ML IVPB ONE (20:45)
--- NOTE | 2017-03-17 21:39 | CONSULT ---
Consult Consult Specialty:: Infectious Diseases Referred by:: Dr. Tom Young Reason for Consultation:: Fever in HIV patient - History of Present Illness Chief Complaint: Fever History of Present Illness: Patient is a 76 yr old female known to my service. She has been HIV (+) for > 10 yrs and has been on therapy since. She was lost to followup from 2012 until June 2016. I last saw her 04 Jan 2017. At that time, her CD4 count was 214 (from 302 done Sep 2016). Her HIV Viral Load was 380 copies/ml (from < 20 copies/ml done Sep 2016). She had been on Triumeq but now reports that she had stopped a few months ago due to nausea and abd pains. She did not inform me of these symptoms. She reports that for the last 2 weeks she has had gradually increasing abdominal pains and was seen in the ED of [facility] where she was told of low WBC and sent home. Condition persisted and she was admitted. Today, noted with fevers and was given Vanco. Of note, the home meds show that she is on Combivir and Sustiva which is different from what my records show - she states that it was "changed". 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 No: Alzheimer's Cardio/Vascular: Yes: CAD (s/p PCI 2008), CHF, HTN, Hyperlipdemia Pulmonary: Yes: Asthma Gastrointestinal: Yes: GERD Infectious Disease: Yes: HIV (on meds- infected 11 yrs ago) - Past Surgical History Past Surgical History: Yes: , Stent - Alcohol/Substance Use Hx Alcohol Use: No - Smoking History Smoking history: Former smoker Have you smoked in the past 12 months: No Aproximately how many cigarettes per day: 2 If you are a former smoker, when did you quit?: 1998 - Social History ADL: Independent History of Recent Travel: No Home Medications - Allergies Allergies/Adverse Reactions: Allergies Allergy/AdvReac Type Severity Reaction Status Date / Time levofloxacin [From Levaquin] Allergy Unknown Verified 03/16/17 14:58 Penicillins Allergy Unknown Verified 03/16/17 14:58 phenytoin sodium Allergy Unknown Verified 03/16/17 14:58 [From Dilantin] phenytoin sodium extended Allergy Unknown Verified 03/16/17 14:58 [From Dilantin] sulfamethoxazole Allergy Unknown Verified 03/16/17 14:58 [From Bactrim] trimethoprim [From Bactrim] Allergy Unknown Verified 03/16/17 14:58 morphine Allergy Verified 03/16/17 14:58 potassium chloride Allergy Verified 03/16/17 14:58 - Home Medications Home Medications: Ambulatory Orders Efavirenz [Sustiva] 600 mg PO HS 02/11/15 Lamivudine/Zidovudine [Combivir Tablet] 1 each PO BID 02/11/15 Potassium Chloride [K-Dur] 20 meq PO DAILY 02/11/15 Sennosides [Senna -] 1 tab PO TID 02/11/15 Valsartan/Hydrochlorothiazide [Diovan Hct 160-25 mg Tablet] 1 tab PO DAILY 02/11 Levetiracetam [Keppra -] 750 mg PO BID #60 tablet 02/14/15 Pantoprazole Sodium [Protonix] 40 mg PO DAILY #60 tablet. 10/12/15 Zolpidem Tartrate [Ambien] 10 mg PO HS PRN #10 tablet 10/12/15 Cefuroxime Axetil [Ceftin -] 500 mg PO BIDPC #14 tablet 01/11/16 Lidocaine 5% Patch [Lidoderm -] 1 patch TP DAILY #30 patch 01/11/16 Ondansetron [Zofran *Odt*] 4 mg SL TID #30 od.tablet 03/10/17 Review of Systems - Review of Systems Constitutional: reports: Chills, Fever Eyes: denies: No Symptoms HENT: denies: No Symptoms Neck: denies: No Symptoms Cardiovascular: denies: Chest Pain, Palpitations Respiratory: denies: Cough, SOB Gastrointestinal: reports: Abdominal Pain, Nausea Genitourinary: denies: Burning, Dysuria Musculoskeletal: reports: Back Pain Physical Exam Vital Signs: Vital Signs Temperature 101.7 F H 03/17/17 19:30 Pulse Rate 88 03/17/17 18:25 Respiratory Rate 16 03/17/17 21:00 Blood Pressure 128/78 03/17/17 18:25 O2 Sat by Pulse Oximetry (%) 99 03/17/17 21:00 Constitutional: Yes: No Distress Eyes: Yes: Conjunctiva Clear, PERRL HENT: Yes: Normocephalic Neck: Yes: Supple Cardiovascular: Yes: Regular Rate and Rhythm Respiratory: Yes: CTA Bilaterally Gastrointestinal: Yes: Normal Bowel Sounds, Soft, Tenderness Musculoskeletal: Yes: Back Pain Edema: No Labs: CBC, BMP 03/17/17 06:15 03/17/17 06:15 Imaging - Results Chest X-ray: Report Reviewed Cat Scan: Report Reviewed Problem List - Problems (1) HIV disease Code(s): B20 - HUMAN IMMUNODEFICIENCY VIRUS [HIV] DISEASE (2) Leukopenia Code(s): D72.819 - DECREASED WHITE BLOOD CELL COUNT, UNSPECIFIED (3) Fever and chills Code(s): R50.9 - FEVER, UNSPECIFIED (4) Penicillin allergy Code(s): Z88.0 - ALLERGY STATUS TO PENICILLIN (5) 4-quinolones allergy Code(s): Z88.1 - ALLERGY STATUS TO OTHER ANTIBIOTIC AGENTS STATUS Assessment/Plan Fever in HIV patient with leukopenia. PCN, Quinolone & Sulfa Allergy Ruelas c/s Check CD4 and HIV Viral load Blood c/s for MAC/AFB She was started on HIV Rx here with Combivir/Sustiva. Need to check (R) pattern at this point, but may do so as outpatient. Renal/Bladder Sonogram Agree Aztreonam 1 gr q 8 to cover GNR's. Further recommendations to be made based on c/s results and clinical course. Thank you for the courtesy of this consult. Cullen Lopez MD
--- NOTE | 2017-03-17 21:53 | PN ---
Progress Note, Physician Chief Complaint: AWAKE MODERATE DISTRESS FEELING ABD AND BACK PAIN - Current Medication List Current Medications: Active Medications Acetaminophen (Tylenol -) 650 mg PO Q6H PRN PRN Reason: FEVER OR PAIN Efavirenz (Sustiva -) 600 mg PO DAILY [facility] Last Admin: 03/17/17 12:11 Dose: Not Given Hydromorphone HCl (Dilaudid Injection -) 1 mg IVPB Q6H PRN PRN Reason: PAIN Last Admin: 03/17/17 15:05 Dose: 1 mg Vancomycin HCl (Vancomycin (Pre-Docked)) 250 mls @ 150 mls/hr IVPB ONCE ONE PRN Reason: Protocol Stop: 03/17/17 22:24 Last Admin: 03/17/17 20:51 Dose: 150 mls/hr Aztreonam 1 gm/ Dextrose 50 mls @ 100 mls/hr IVPB Q8H-IV JANETH PRN Reason: Protocol Lamivudine/Zidovudine (Combivir Tablet 150/300 -) 1 tablet PO BID [facility] Last Admin: 03/17/17 10:24 Dose: 1 tablet Levetiracetam (Keppra -) 500 mg PO BID [facility] Last Admin: 03/17/17 10:23 Dose: Not Given Pantoprazole Sodium (Protonix -) 40 mg PO DAILY [facility] Last Admin: 03/17/17 10:24 Dose: 40 mg Senna (Senna -) 1 tab PO HS [facility] Last Admin: 03/17/17 00:40 Dose: Not Given Valsartan (Diovan -) 160 mg PO DAILY [facility] Last Admin: 03/17/17 10:23 Dose: Not Given Zolpidem Tartrate (Ambien -) 5 mg PO HS PRN PRN Reason: INSOMNIA - Objective Vital Signs: Vital Signs Temperature 101.7 F H 03/17/17 19:30 Pulse Rate 88 03/17/17 18:25 Respiratory Rate 16 03/17/17 21:00 Blood Pressure 128/78 03/17/17 18:25 O2 Sat by Pulse Oximetry (%) 99 03/17/17 21:00 Constitutional: Yes: Moderate Distress Eyes: Yes: WNL HENT: Yes: WNL Neck: Yes: WNL Cardiovascular: Yes: WNL Respiratory: Yes: WNL Gastrointestinal: Yes: Tenderness, Other Genitourinary: Yes: WNL Extremities: Yes: Other Edema: No Peripheral Pulses WNL: Yes Integumentary: Yes: Rash Wound/Incision: Yes: Other Neurological: Yes: Numbness ...Motor Strength: LLE, RLE Psychiatric: Yes: Agitated, Other Labs: CBC, BMP 03/17/17 06:15 03/17/17 06:15 Problem List - Problems (1) Gastroparesis Code(s): K31.84 - GASTROPARESIS (2) Nausea & vomiting Code(s): R11.2 - NAUSEA WITH VOMITING, UNSPECIFIED (3) AIDS dementia complex Code(s): B20 - HUMAN IMMUNODEFICIENCY VIRUS [HIV] DISEASE F02.80 - DEMENTIA IN OTH DISEASES CLASSD ELSWHR W/O BEHAVRL DISTURB (4) Abdominal pain Code(s): R10.9 - UNSPECIFIED ABDOMINAL PAIN Qualifiers: Qualified Code(s): R10.9 - Unspecified abdominal pain (5) Anemia Code(s): D64.9 - ANEMIA, UNSPECIFIED (6) DM (diabetes mellitus) type II controlled peripheral vascular disorder Code(s): E11.51 - TYPE 2 DIABETES W DIABETIC PERIPHERAL ANGIOPATH W/O GANGRENE (7) Decreased oral intake Code(s): R63.8 - OTHER SYMPTOMS AND SIGNS CONCERNING FOOD AND FLUID INTAKE (8) HIV (human immunodeficiency virus infection) Code(s): Z21 - ASYMPTOMATIC HUMAN IMMUNODEFICIENCY VIRUS INFECTION STATUS (9) Weight loss Code(s): R63.4 - ABNORMAL WEIGHT LOSS (10) Leukopenia Code(s): D72.819 - DECREASED WHITE BLOOD CELL COUNT, UNSPECIFIED Assessment/Plan POOR PO INTAKE ABD/BACK PAIN N/V GI EVAL APPRECIATED ID CONSULT APPRECIATED DISCUSSED WITH DR POLK PATIENT OFF HER ANTIRETROVIRALS SINCE DECEMBER AND THEIR IS POSSIBILITY THAT THE PATIENT MAY HAVE AIDS SYNDROME. LABS ORDERED, CD4 ETC IVF R/O AIDS NEOPLASM VS MALNUTRITION APPETITE STIMULANT
--- NOTE | 2017-03-18 | CONSULT ---
Consult - text type - Consultation Consultation Note: The patient is a 76 year old female, with a significant past medical history of Breast CA, asthma, CVA, COPD, CHF, diabetes, HTN, HIV, HLD, diverticulitis, seizures and neuropathy,neck and back herniated disc, who presents with fevers/ chills. She reports that she was at [facility] last week for abdominal pain, nausea and vomiting. currently with shaking chills. denies any pain. Allergies: levofloxacin, dilantin, penicillins, bactrim, potassium chloride, morphine Past surgical history: Cardiac Stent (x1) 11-07-07, abdominal hernia surgery (x3 ), herniated disc surgery. Social history: Former smoker. No alcohol or drug use reported - Past Medical History Asthma: Yes Cancer: Yes (Breast) Cardiac Disorders: Yes CVA: Yes COPD: Yes CHF: Yes Diabetes: Yes GI Disorders: Yes (diverticulitsis) HTN: Yes Hypercholesterolemia: Yes HIV: Yes Seizures: Yes Other medical history: neuropathy,neck and back herniated disc, - Surgical History Abdominal Surgery: Yes (3 hernia surgery) Cardiac Surgery: Yes (1 stent 11-07-07) Orthopedic Surgery: Yes (herniated disc) - Psycho/Social/Smoking Cessation Hx Smoking History: Former smoker Allergies/Adverse Reactions: Allergies Allergy/AdvReac Type Severity Reaction Status Date / Time levofloxacin [From Levaquin] Allergy Unknown Verified 03/16/17 14:58 Penicillins Allergy Unknown Verified 03/16/17 14:58 phenytoin sodium Allergy Unknown Verified 03/16/17 14:58 [From Dilantin] phenytoin sodium extended Allergy Unknown Verified 03/16/17 14:58 [From Dilantin] sulfamethoxazole Allergy Unknown Verified 03/16/17 14:58 [From Bactrim] trimethoprim [From Bactrim] Allergy Unknown Verified 03/16/17 14:58 morphine Allergy Verified 03/16/17 14:58 potassium chloride Allergy Verified 03/16/17 14:58 Home Medications: Ambulatory Orders Efavirenz [Sustiva] 600 mg PO HS 02/11/15 Lamivudine/Zidovudine [Combivir Tablet] 1 each PO BID 02/11/15 Potassium Chloride [K-Dur] 20 meq PO DAILY 02/11/15 Sennosides [Senna -] 1 tab PO TID 02/11/15 Valsartan/Hydrochlorothiazide [Diovan Hct 160-25 mg Tablet] 1 tab PO DAILY 02/11 Levetiracetam [Keppra -] 750 mg PO BID #60 tablet 02/14/15 Pantoprazole Sodium [Protonix] 40 mg PO DAILY #60 tablet. 10/12/15 Zolpidem Tartrate [Ambien] 10 mg PO HS PRN #10 tablet 10/12/15 Cefuroxime Axetil [Ceftin -] 500 mg PO BIDPC #14 tablet 01/11/16 Lidocaine 5% Patch [Lidoderm -] 1 patch TP DAILY #30 patch 01/11/16 Ondansetron [Zofran *Odt*] 4 mg SL TID #30 od.tablet 03/10/17 - Vital Signs Last Vital Signs Temp Pulse Resp BP Pulse Ox 97.5 F L 78 18 143/74 98 03/16/17 15:00 03/16/17 15:00 03/16/17 15:00 03/16/17 15:00 03/16/17 15:00 Cor: RSR, No murmurs, No gallops Lungs: Clear to P&A Abd: Soft, Normal bowel sounds, No organomegaly Ext:No significant edema Labs reviewed A/P This pt is a 76 yo F w a h/o HIV, CAD s/p stent, CHF, hypertension, dyslipidemia , COPD, diabetes, who presents to the emergency department for persistent vomiting with generalized weakness. Also with fevers/shaking chills anemia/leukopenia due to aids/ ? opportunsic infection b2/folate nl check retic/ldh/hapto/karen/iron studies check cd4/esr/crp ct a/p unrevealing chest ct check afb/fungal cx check cmv pcr empiric aztreonam/vanco await cultures
[2017-03-18] MEDS: ACETAMINOPHEN 325 MG TABLET (FP) PO PRN ×2 (01:35→15:14)
[2017-03-18] MEDS ORDERED: PT OWN MED DRAWER 7, Y5N ONE ×3 (06:43→11:03)
[2017-03-18 08:13] LABS: INR 1.19 (0.82-1.09); PROTHROMBIN TIME (PATIENT) 13.1 SEC (9.98-11.88)
[2017-03-18 08:16] LABS: ACTIVATED PTT 42.5 SECONDS (26.9-34.4)
[2017-03-18 08:23] LABS: C-REACTIVE PROTEIN 6.7 MG/DL (0.00-0.3)
[2017-03-18 08:32] LABS: FERRITIN 653.38 ng/ml (6.9-282.5); FREE T4 1.22 ng/dl (0.76-1.46); THYROID STIMULATING HORMONE 1.01 uIU/ml (0.358-3.74)
[2017-03-18] MEDS: lamiVUDine/ZIDOVUDINE 150/300 1 COMBO TABLET PO SCH ×2 (10:48→22:00)
[2017-03-18] MEDS: PANTOPRAZOLE 40 MG TABLET (FP) PO SCH (10:48)
[2017-03-18] MEDS: VALSARTAN 160 MG TABLET (UD) PO SCH (10:48)
[2017-03-18] MEDS: AZTREONAM 1 GM in DEXTROSE 5%-WATER - 50 ML IVPB SCH ×2 (10:48→17:02)
[2017-03-18] MEDS: levETIRAcetam 500 MG TABLET (FP) PO SCH ×2 (10:49→22:00)
[2017-03-18] MEDS: EFAVIRENZ 600 MG TABLET PO SCH (10:49)
--- NOTE | 2017-03-18 13:24 | PN ---
Progress Note, Physician Chief Complaint: AWAKE ALERT DOES NOT WANT TO HAVE BLOOD DRAWS TODAY - Current Medication List Current Medications: Active Medications Acetaminophen (Tylenol -) 650 mg PO Q6H PRN PRN Reason: FEVER OR PAIN Last Admin: 03/18/17 01:35 Dose: 650 mg Efavirenz (Sustiva -) 600 mg PO DAILY [facility] Last Admin: 03/18/17 10:49 Dose: Not Given Hydromorphone HCl (Dilaudid Injection -) 1 mg IVPB Q6H PRN PRN Reason: PAIN Last Admin: 03/17/17 15:05 Dose: 1 mg Aztreonam 1 gm/ Dextrose 50 mls @ 100 mls/hr IVPB Q8H-IV JANETH PRN Reason: Protocol Last Admin: 03/18/17 10:48 Dose: 100 mls/hr Lamivudine/Zidovudine (Combivir Tablet 150/300 -) 1 tablet PO BID [facility] Last Admin: 03/18/17 10:48 Dose: Not Given Levetiracetam (Keppra -) 500 mg PO BID [facility] Last Admin: 03/18/17 10:49 Dose: Not Given Pantoprazole Sodium (Protonix -) 40 mg PO DAILY [facility] Last Admin: 03/18/17 10:48 Dose: 40 mg Senna (Senna -) 1 tab PO HS [facility] Last Admin: 03/17/17 22:57 Dose: Not Given Valsartan (Diovan -) 160 mg PO DAILY [facility] Last Admin: 03/18/17 10:48 Dose: Not Given Zolpidem Tartrate (Ambien -) 5 mg PO HS PRN PRN Reason: INSOMNIA - Objective Vital Signs: Vital Signs Temperature 99.9 F H 03/18/17 09:00 Pulse Rate 95 H 03/18/17 09:00 Respiratory Rate 20 03/18/17 09:00 Blood Pressure 134/54 03/18/17 09:00 O2 Sat by Pulse Oximetry (%) 98 03/18/17 09:00 Constitutional: Yes: Mild Distress Eyes: Yes: WNL HENT: Yes: WNL Neck: Yes: WNL Cardiovascular: Yes: WNL Respiratory: Yes: On Nasal O2, SOB Gastrointestinal: Yes: WNL Genitourinary: Yes: WNL Musculoskeletal: Yes: Muscle Weakness Extremities: Yes: WNL Edema: No Peripheral Pulses WNL: Yes Integumentary: Yes: WNL Wound/Incision: Yes: Clean/Dry Neurological: Yes: Pre-Existing Deficit, Weakness ...Motor Strength: LLE, RLE Psychiatric: Yes: Other Labs: CBC, BMP 03/17/17 06:15 INR, PTT INR 1.19 (0.82-1.09) H 03/18/17 06:55 Fibrinogen 405.0 mg/dL (238-498) 03/18/17 06:55 Problem List - Problems (1) Gastroparesis Code(s): K31.84 - GASTROPARESIS (2) Nausea & vomiting Code(s): R11.2 - NAUSEA WITH VOMITING, UNSPECIFIED (3) AIDS dementia complex Code(s): B20 - HUMAN IMMUNODEFICIENCY VIRUS [HIV] DISEASE F02.80 - DEMENTIA IN OTH DISEASES CLASSD ELSWHR W/O BEHAVRL DISTURB (4) Abdominal pain Code(s): R10.9 - UNSPECIFIED ABDOMINAL PAIN Qualifiers: Abdominal location: unspecified location Qualified Code(s): R10.9 - Unspecified abdominal pain (5) Anemia Code(s): D64.9 - ANEMIA, UNSPECIFIED (6) DM (diabetes mellitus) type II controlled peripheral vascular disorder Code(s): E11.51 - TYPE 2 DIABETES W DIABETIC PERIPHERAL ANGIOPATH W/O GANGRENE (7) Decreased oral intake Code(s): R63.8 - OTHER SYMPTOMS AND SIGNS CONCERNING FOOD AND FLUID INTAKE (8) HIV (human immunodeficiency virus infection) Code(s): Z21 - ASYMPTOMATIC HUMAN IMMUNODEFICIENCY VIRUS INFECTION STATUS (9) Weight loss Code(s): R63.4 - ABNORMAL WEIGHT LOSS (10) Leukopenia Code(s): D72.819 - DECREASED WHITE BLOOD CELL COUNT, UNSPECIFIED Assessment/Plan DISCUSSED WITH ID IV ABX STARTED FEVER AIDS SYNDROME LIKELY AWAIT CD4 COUNT DISCUSSED IMPORTANCE OF LABS WITH PATIENT
[2017-03-18] MEDS: DEXTROSE 5%-0.45% SALINE 1,000 ML IV SCH (15:10)
[2017-03-18 16:27] LABS: ALBUMIN 2.7 g/dl (3.4-5.0); ANION GAP 14 (8-16); BILIRUBIN,TOTAL 0.3 mg/dL (0.2-1.0); CALCIUM 8.2 mg/dL (8.5-10.1); CO2 16 mmol/L (21-32); GLUCOSE,RANDOM 131 mg/dL (74-106); SGOT/AST 79 U/L (15-37); SGPT/ALT 58 U/L (12-78); TOT PROT 6.9 g/dl (6.4-8.2)
[2017-03-18 16:28] LABS: ALK PHOS 167 U/L (45-117)
[2017-03-18 16:37] LABS: MCH 27.4 pg (25.7-33.7); MCHC 31.8 g/dl (32.0-36.0); MEAN PLT VOLUME 8.4 fl (7.5-11.1); PLATELET COUNT 171 K/MM3 (134-434); RDW 18.8 % (11.6-15.6); WHITE BLOOD COUNT 3.2 K/mm3 (4.0-10.0)
[2017-03-18 16:44] LABS: COCKROFT - GAULT 38.675; CREATININE 0.9 mg/dL (0.55-1.02)
--- NOTE | 2017-03-18 20:50 | PN ---
Progress Note (short form) - Note Progress Note: Patient seen and examined Feels better today Last Vital Signs Temp Pulse Resp BP Pulse Ox 99.7 F H 99 H 20 109/55 98 03/18/17 17:28 03/18/17 17:28 03/18/17 17:28 03/18/17 17:28 03/18/17 09:00 Cor: RSR, No murmurs, No gallops Lungs: Clear to P&A Abd: Soft, Normal bowel sounds, No organomegaly Ext:No significant edema Skin: No rashes, Integument intact Abnormal Lab Results 03/17/17 03/18/17 03/18/17 06:15 06:55 06:55 WBC Hgb Hct MCHC RDW ESR INR 1.19 H PTT (Actin FS) 42.5 H D Sodium Carbon Dioxide BUN Random Glucose Calcium Iron 26 L Ferritin 653.380 H AST Alkaline Phosphatase C-Reactive Protein Albumin 03/18/17 03/18/17 03/18/17 06:55 06:55 15:35 WBC 3.2 L Hgb 10.1 L Hct 31.9 L MCHC 31.8 L RDW 18.8 H ESR 95 H INR PTT (Actin FS) Sodium Carbon Dioxide BUN Random Glucose Calcium Iron Ferritin AST Alkaline Phosphatase C-Reactive Protein 6.7 H D Albumin 03/18/17 15:35 WBC Hgb Hct MCHC RDW ESR INR PTT (Actin FS) Sodium 134 L Carbon Dioxide 16 L BUN 19 H Random Glucose 131 H D Calcium 8.2 L Iron Ferritin AST 79 H D Alkaline Phosphatase 167 H C-Reactive Protein Albumin 2.7 L Home Medication List Medication Instructions Recorded Confirmed Type Efavirenz [Sustiva] 600 mg PO HS 02/11/15 03/16/17 History Lamivudine/Zidovudine [Combivir 1 each PO BID 02/11/15 03/16/17 History Tablet] Potassium Chloride [K-Dur] 20 meq PO DAILY 02/11/15 03/16/17 History Sennosides [Senna -] 1 tab PO TID 02/11/15 03/16/17 History Valsartan/Hydrochlorothiazide 1 tab PO DAILY 02/11/15 03/16/17 History [Diovan Hct 160-25 mg Tablet] Active Medications Generic Name Dose Route Start Last Admin Trade Name Freq PRN Reason Stop Dose Admin Acetaminophen 650 mg 03/16/17 20:55 03/18/17 15:14 Tylenol - PO 650 mg Q6H PRN Administration FEVER OR PAIN Efavirenz 600 mg 03/17/17 10:00 03/18/17 10:49 Sustiva - PO Not Given DAILY JANETH Hydromorphone HCl 1 mg 03/17/17 10:44 03/17/17 15:05 Dilaudid Injection - IVPB 1 mg Q6H PRN Administration PAIN Aztreonam 1 gm/ Dextrose 50 mls @ 100 mls/hr 03/18/17 10:00 03/18/17 17:02 IVPB 100 mls/hr Q8H-IV JANETH Administration Protocol Dextrose/Sodium Chloride 1,000 mls @ 85 mls/hr 03/18/17 17:00 03/18/17 15:10 D5-1/2ns - IV 85 mls/hr ASDIR JANETH Administration Lamivudine/Zidovudine 1 tablet 03/16/17 22:00 03/18/17 10:48 Combivir Tablet 150/300 - PO Not Given BID JANETH Levetiracetam 500 mg 03/16/17 22:00 03/18/17 10:49 Keppra - PO Not Given BID JANETH Mirtazapine 15 mg 03/18/17 22:00 Remeron - PO HS JANETH Pantoprazole Sodium 40 mg 03/17/17 10:00 03/18/17 10:48 Protonix - PO 40 mg DAILY JANETH Administration Senna 1 tab 03/16/17 22:00 03/17/17 22:57 Senna - PO Not Given HS JANETH Valsartan 160 mg 03/17/17 10:00 03/18/17 10:48 Diovan - PO Not Given DAILY JANETH Zolpidem Tartrate 5 mg 03/16/17 20:58 Ambien - PO HS PRN INSOMNIA A/P 76 yo F w a h/o HIV, CAD s/p stent, CHF, hypertension, dyslipidemia, COPD, diabetes, who presents to the emergency department for persistent vomiting with generalized weakness. Also with fevers/shaking chills anemia/leukopenia due to aids/ ? opportunsic infection b2/folate nl check retic/ldh/hapto/karen/iron studies check cd4/esr/crp ct a/p unrevealing check afb/fungal cx check cmv pcr Chest CT shows RML infiltrate ? acute pneumonia ? pulmonary consult empiric aztreonam/vanco
--- NOTE | 2017-03-18 21:11 | PN ---
Progress Note, Physician History of Present Illness: Feels a little better this evening. Refused labs tests earlier. Have discussed with daughter, Lia - who wasn't aware that her mother wasn't taking her ARV' s for a few months. She was told to talk to Nayely about complying with tests and taking medications. - Current Medication List Current Medications: Active Medications Acetaminophen (Tylenol -) 650 mg PO Q6H PRN PRN Reason: FEVER OR PAIN Last Admin: 03/18/17 15:14 Dose: 650 mg Efavirenz (Sustiva -) 600 mg PO DAILY JANETH Last Admin: 03/18/17 10:49 Dose: Not Given Hydromorphone HCl (Dilaudid Injection -) 1 mg IVPB Q6H PRN PRN Reason: PAIN Last Admin: 03/17/17 15:05 Dose: 1 mg Aztreonam 1 gm/ Dextrose 50 mls @ 100 mls/hr IVPB Q8H-IV JANETH PRN Reason: Protocol Last Admin: 03/18/17 17:02 Dose: 100 mls/hr Dextrose/Sodium Chloride (D5-1/2ns -) 1,000 mls @ 85 mls/hr IV ASDIR JANETH Last Admin: 03/18/17 15:10 Dose: 85 mls/hr Lamivudine/Zidovudine (Combivir Tablet 150/300 -) 1 tablet PO BID JANETH Last Admin: 03/18/17 10:48 Dose: Not Given Levetiracetam (Keppra -) 500 mg PO BID JANETH Last Admin: 03/18/17 10:49 Dose: Not Given Mirtazapine (Remeron -) 15 mg PO HS JANETH Pantoprazole Sodium (Protonix -) 40 mg PO DAILY [facility] Last Admin: 03/18/17 10:48 Dose: 40 mg Senna (Senna -) 1 tab PO HS JANETH Last Admin: 03/17/17 22:57 Dose: Not Given Valsartan (Diovan -) 160 mg PO DAILY [facility] Last Admin: 03/18/17 10:48 Dose: Not Given Zolpidem Tartrate (Ambien -) 5 mg PO HS PRN PRN Reason: INSOMNIA - Objective Vital Signs: Vital Signs Temperature 99.7 F H 03/18/17 17:28 Pulse Rate 99 H 03/18/17 17:28 Respiratory Rate 20 03/18/17 17:28 Blood Pressure 109/55 03/18/17 17:28 O2 Sat by Pulse Oximetry (%) 98 03/18/17 09:00 Constitutional: Yes: No Distress Eyes: Yes: PERRL HENT: Yes: Normocephalic Neck: Yes: Supple Cardiovascular: Yes: Regular Rate and Rhythm Respiratory: Yes: CTA Bilaterally Gastrointestinal: Yes: Normal Bowel Sounds, Soft. No: Tenderness Labs: CBC, BMP 03/18/17 15:35 03/18/17 15:35 INR, PTT INR 1.19 (0.82-1.09) H 03/18/17 06:55 Fibrinogen 405.0 mg/dL (238-498) 03/18/17 06:55 Problem List - Problems (1) HIV disease Code(s): B20 - HUMAN IMMUNODEFICIENCY VIRUS [HIV] DISEASE (2) Leukopenia Code(s): D72.819 - DECREASED WHITE BLOOD CELL COUNT, UNSPECIFIED (3) Fever and chills Code(s): R50.9 - FEVER, UNSPECIFIED (4) Penicillin allergy Code(s): Z88.0 - ALLERGY STATUS TO PENICILLIN (5) 4-quinolones allergy Code(s): Z88.1 - ALLERGY STATUS TO OTHER ANTIBIOTIC AGENTS STATUS Assessment/Plan Pt with fever, HIV, leukopenia. CT Scan chest with patchy consolidation. Check Urine for Legionella. Mycoplasma IgM Continue Azactam&Vanco for now. Awaiting labs results.
[2017-03-18] MEDS: MIRTAZAPINE 15 MG TABLET (FP) PO SCH (22:30)
[2017-03-19] MEDS: AZTREONAM 1 GM in DEXTROSE 5%-WATER - 50 ML IVPB SCH ×3 (01:59→18:28)
[2017-03-19] MEDS: SENNOSIDES 8.6MG TABLET (FP) PO SCH ×2 (02:00→22:02)
[2017-03-19] MEDS: ACETAMINOPHEN 325 MG TABLET (FP) PO PRN ×3 (02:04→22:02)
[2017-03-19 07:12] LABS: MCH 27.9 pg (25.7-33.7); MCHC 32.7 g/dl (32.0-36.0); MEAN CELL VOLUME 85.3 fl (80-96); MEAN PLT VOLUME 7.9 fl (7.5-11.1); PLATELET COUNT 164 K/MM3 (134-434); RDW 18.5 % (11.6-15.6); WHITE BLOOD COUNT 2.6 K/mm3 (4.0-10.0)
[2017-03-19 08:49] LABS: PLATELET ESTIMATE ADEQUATE (NORMAL)
[2017-03-19] MEDS: lamiVUDine/ZIDOVUDINE 150/300 1 COMBO TABLET PO SCH ×3 (10:15→22:02)
[2017-03-19] MEDS: levETIRAcetam 500 MG TABLET (FP) PO SCH ×3 (10:15→22:02)
[2017-03-19] MEDS: EFAVIRENZ 600 MG TABLET PO SCH ×2 (10:16→14:57)
[2017-03-19] MEDS ORDERED: PT OWN MED DRAWER 7, Y5N ONE ×4 (10:20→21:47)
[2017-03-19] MEDS: PANTOPRAZOLE 40 MG TABLET (FP) PO SCH (10:31)
[2017-03-19] MEDS: VALSARTAN 160 MG TABLET (UD) PO SCH ×2 (10:32→14:56)
--- NOTE | 2017-03-19 12:35 | CON.PULM ---
Consult Consult Specialty:: PULMONARY Referred by:: PMD Reason for Consultation:: ABN CT CHEST - History of Present Illness Chief Complaint: DENIES ANY SYMPTOMS BUT STATES "DONT TOUCH MY BELLY" History of Present Illness: The patient is a 76 year old female, with a significant past medical history of Breast CA, asthma, CVA, COPD, CHF, diabetes, HTN, HIV, HLD, diverticulitis, seizures and neuropathy,neck and back herniated disc, who presents to the emergency department after being sent by her PMD for evaluation. She reports that she was at [facility] last week for abdominal pain, nausea and vomiting. She was diagnosed with low blood count and was sent home. She followed up with her PMD who sent her to the ED for further evaluation. I have been asked to evaluate abnormal findings on ct chest. - History Source History Provided By: Medical Record Limitations to Obtaining History: Poor Historian - Past Medical History [employer]: Yes: Seizure. No: Alzheimer's Cardio/Vascular: Yes: CAD (s/p PCI 2008), CHF, HTN, Hyperlipdemia Pulmonary: Yes: Asthma Gastrointestinal: Yes: GERD Infectious Disease: Yes: HIV (on meds- infected 11 yrs ago) - Past Surgical History Past Surgical History: Yes: , Stent - Alcohol/Substance Use Hx Alcohol Use: No - Smoking History Smoking history: Former smoker Have you smoked in the past 12 months: No Aproximately how many cigarettes per day: 2 If you are a former smoker, when did you quit?: 1998 - Social History ADL: Independent History of Recent Travel: No Home Medications - Allergies Allergies/Adverse Reactions: Allergies Allergy/AdvReac Type Severity Reaction Status Date / Time levofloxacin [From Levaquin] Allergy Unknown Verified 03/16/17 14:58 Penicillins Allergy Unknown Verified 03/16/17 14:58 phenytoin sodium Allergy Unknown Verified 03/16/17 14:58 [From Dilantin] phenytoin sodium extended Allergy Unknown Verified 03/16/17 14:58 [From Dilantin] sulfamethoxazole Allergy Unknown Verified 03/16/17 14:58 [From Bactrim] trimethoprim [From Bactrim] Allergy Unknown Verified 03/16/17 14:58 morphine Allergy Verified 03/16/17 14:58 potassium chloride Allergy Verified 03/16/17 14:58 - Home Medications Home Medications: Ambulatory Orders Efavirenz [Sustiva] 600 mg PO HS 02/11/15 Lamivudine/Zidovudine [Combivir Tablet] 1 each PO BID 02/11/15 Potassium Chloride [K-Dur] 20 meq PO DAILY 02/11/15 Sennosides [Senna -] 1 tab PO TID 02/11/15 Valsartan/Hydrochlorothiazide [Diovan Hct 160-25 mg Tablet] 1 tab PO DAILY 02/11 Levetiracetam [Keppra -] 750 mg PO BID #60 tablet 02/14/15 Pantoprazole Sodium [Protonix] 40 mg PO DAILY #60 tablet. 10/12/15 Zolpidem Tartrate [Ambien] 10 mg PO HS PRN #10 tablet 10/12/15 Cefuroxime Axetil [Ceftin -] 500 mg PO BIDPC #14 tablet 01/11/16 Lidocaine 5% Patch [Lidoderm -] 1 patch TP DAILY #30 patch 01/11/16 Ondansetron [Zofran *Odt*] 4 mg SL TID #30 od.tablet 03/10/17 Family Disease History - Family Disease History Family History: Unable to Obtain Review of Systems Unable to obtain ROS, reason: POOR INFORMANT Physical Exam Vital Sings: Vital Signs Temperature 98.2 F 03/19/17 06:00 Pulse Rate 86 03/19/17 06:00 Respiratory Rate 18 03/19/17 06:00 Blood Pressure 107/54 03/19/17 06:00 O2 Sat by Pulse Oximetry (%) 98 03/18/17 09:00 Constitutional: Yes: Anxious Eyes: Yes: EOM Intact HENT: Yes: Normocephalic Neck: Yes: Trachea Midline Cardiovascular: Yes: S1, S2 Respiratory: Yes: CTA Bilaterally Gastrointestinal: Yes: Other (REFUSED ABD EXAM) Edema: No Labs: CBC, BMP 03/19/17 06:00 03/18/17 15:35 Imaging - Results Cat Scan: Image Reviewed Problem List - Problems (1) HIV disease Code(s): B20 - HUMAN IMMUNODEFICIENCY VIRUS [HIV] DISEASE (2) Leukopenia Code(s): D72.819 - DECREASED WHITE BLOOD CELL COUNT, UNSPECIFIED (3) Nausea & vomiting Code(s): R11.2 - NAUSEA WITH VOMITING, UNSPECIFIED (4) Infiltrate noted on imaging study Code(s): R93.8 - ABNORMAL FINDINGS ON DIAGNOSTIC IMAGING OF BODY STRUCTURES Assessment/Plan PATCHY INFITRATE RIGHT MID LUNG ZONE MULTIPLE MEDICAL PROBLEMS LISTED AGREE WITH ANTIBIOTICS/ANTIVIRALS CHECK PANCULTURE O2 PRN BRONCHODILATORS NEEDED Olamide HUNTER MD
--- NOTE | 2017-03-19 13:56 | PN ---
Progress Note, Physician Chief Complaint: PATIENT'S DAUGHTER IS BEDSIDE DISCUSSED ADVANCED DIRECTIVES, SHE REPORTS HER MOM HAS PAPERWORK SUPPORTING THAT SHE DOES NOT WANT TO BE INTUBATED OR RESUSCITATED. I INSTRUCTED THE DAUGHTER TO BRING PROOF OF THE LETTER. I WILL MAKE HER DNR/DNI NOW AND HAVE HER SIGN FORM - Current Medication List Current Medications: Active Medications Acetaminophen (Tylenol -) 650 mg PO Q6H PRN PRN Reason: FEVER OR PAIN Last Admin: 03/19/17 10:31 Dose: 650 mg Efavirenz (Sustiva -) 600 mg PO DAILY [facility] Last Admin: 03/19/17 10:16 Dose: Not Given Hydromorphone HCl (Dilaudid Injection -) 1 mg IVPB Q6H PRN PRN Reason: PAIN Last Admin: 03/17/17 15:05 Dose: 1 mg Aztreonam 1 gm/ Dextrose 50 mls @ 100 mls/hr IVPB Q8H-IV JANETH PRN Reason: Protocol Last Admin: 03/19/17 10:31 Dose: 100 mls/hr Dextrose/Sodium Chloride (D5-1/2ns -) 1,000 mls @ 85 mls/hr IV ASDIR JANETH Last Admin: 03/18/17 15:10 Dose: 85 mls/hr Lamivudine/Zidovudine (Combivir Tablet 150/300 -) 1 tablet PO BID [facility] Last Admin: 03/19/17 10:15 Dose: Not Given Levetiracetam (Keppra -) 500 mg PO BID [facility] Last Admin: 03/19/17 10:15 Dose: Not Given Mirtazapine (Remeron -) 15 mg PO HS [facility] Last Admin: 03/18/17 22:30 Dose: 15 mg Pantoprazole Sodium (Protonix -) 40 mg PO DAILY [facility] Last Admin: 03/19/17 10:31 Dose: 40 mg Senna (Senna -) 1 tab PO HS [facility] Last Admin: 03/19/17 02:00 Dose: Not Given Valsartan (Diovan -) 160 mg PO DAILY [facility] Last Admin: 03/19/17 10:32 Dose: Not Given Zolpidem Tartrate (Ambien -) 5 mg PO HS PRN PRN Reason: INSOMNIA - Objective Vital Signs: Vital Signs Temperature 98.2 F 03/19/17 06:00 Pulse Rate 86 03/19/17 06:00 Respiratory Rate 18 03/19/17 06:00 Blood Pressure 107/54 03/19/17 06:00 O2 Sat by Pulse Oximetry (%) 98 03/18/17 09:00 Constitutional: Yes: Mild Distress Eyes: Yes: WNL HENT: Yes: WNL Neck: Yes: WNL Cardiovascular: Yes: WNL Respiratory: Yes: Rhonchi, SOB Gastrointestinal: Yes: WNL Genitourinary: Yes: WNL Musculoskeletal: Yes: Back Pain, Muscle Weakness Extremities: Yes: WNL Edema: No Peripheral Pulses WNL: Yes Integumentary: Yes: WNL Wound/Incision: Yes: Clean/Dry Neurological: Yes: Pre-Existing Deficit, Unsteady Gait ...Motor Strength: LLE, RLE Labs: CBC, BMP 03/19/17 06:00 03/18/17 15:35 INR, PTT INR 1.19 (0.82-1.09) H 03/18/17 06:55 Fibrinogen 405.0 mg/dL (238-498) 03/18/17 06:55 Problem List - Problems (1) Gastroparesis Code(s): K31.84 - GASTROPARESIS (2) Nausea & vomiting Code(s): R11.2 - NAUSEA WITH VOMITING, UNSPECIFIED (3) AIDS dementia complex Code(s): B20 - HUMAN IMMUNODEFICIENCY VIRUS [HIV] DISEASE F02.80 - DEMENTIA IN OTH DISEASES CLASSD ELSWHR W/O BEHAVRL DISTURB (4) Abdominal pain Code(s): R10.9 - UNSPECIFIED ABDOMINAL PAIN Qualifiers: Abdominal location: unspecified location Qualified Code(s): R10.9 - Unspecified abdominal pain (5) Anemia Code(s): D64.9 - ANEMIA, UNSPECIFIED (6) DM (diabetes mellitus) type II controlled peripheral vascular disorder Code(s): E11.51 - TYPE 2 DIABETES W DIABETIC PERIPHERAL ANGIOPATH W/O GANGRENE (7) Decreased oral intake Code(s): R63.8 - OTHER SYMPTOMS AND SIGNS CONCERNING FOOD AND FLUID INTAKE (8) HIV (human immunodeficiency virus infection) Code(s): Z21 - ASYMPTOMATIC HUMAN IMMUNODEFICIENCY VIRUS INFECTION STATUS (9) Weight loss Code(s): R63.4 - ABNORMAL WEIGHT LOSS (10) Leukopenia Code(s): D72.819 - DECREASED WHITE BLOOD CELL COUNT, UNSPECIFIED (11) DNR (do not resuscitate) Code(s): Z66 - DO NOT RESUSCITATE Assessment/Plan ADVANCED DIRECTIVES DISCUSSED WITH DAUGHTER PATIENT DNR/DNI FEVERS PERSISTENT TYLENOL AND MOTRIN PRN ID FOLLOW UP IV ABX PULM/ID/HEM CONSULTS APPRECIATED
[2017-03-19] MEDS ORDERED: HYDROmorphone HCL CARPU-JECT 2 MG/1 ML DISP.SYRIN IVPB ONE (14:02)
[2017-03-19] MEDS: DEXTROSE 5%-0.45% SALINE 1,000 ML IV SCH ×2 (14:56→17:15)
--- NOTE | 2017-03-19 15:27 | PATH ---
Surgical Pathology Report Patient Name: CIARA FLORES Med. Rec. #: [id number] /Age/Gender: 1940 (Age: 76) / F Account: [id number] Location: [facility] MED/SURG Taken: 03/18/2017 Received: 03/18/2017 Reported: 03/19/2017 Physicians: Daria Ta M.D. Specimen(s) Received PERIPHERAL BLOOD Clinical History History of HIV, fevers, chills, weakness, anemia and leukopenia Rule out lymphoma Final Diagnosis FLOW CYTOMETRY PERFORMED AND INTERPRETED AT [place], [place]([id number]) SHOWED THE FOLLOWING: INTERPRETATION: NO ATYPICAL FLOW CYTOMETRIC FINDINGS SEEN. Phenotype: Lymphocytes include polyclonal B cells, NK cells and immuno-phenotypically normal CD4+ and CD8+ T cells in normal proportions. No evidence of a clonal lymphoid expansion. Granulocytes are immuno-phenotypically mature. Cytomorphology: smears from flow sample show no increase in myeloblasts or atypical lymphocytes. Electronically Signed Jerrell Rai M.D. Gross Description Received are 2 green top tubes of blood which are sent to [facility]. /03/18/2017 saudi/03/18/2017
[2017-03-19] MEDS: DOXYCYCLINE HYCLATE 100 MG CAPSULE PO SCH (18:28)
--- NOTE | 2017-03-19 19:05 | PN ---
Progress Note, Physician Chief Complaint: Still intermittent compliance. Had fever this PM - Current Medication List Current Medications: Active Medications Acetaminophen (Tylenol -) 650 mg PO Q6H PRN PRN Reason: FEVER OR PAIN Last Admin: 03/19/17 10:31 Dose: 650 mg Doxycycline Hyclate (Vibramycin -) 100 mg PO BID@10,18 [facility] Last Admin: 03/19/17 18:28 Dose: 100 mg Efavirenz (Sustiva -) 600 mg PO DAILY [facility] Last Admin: 03/19/17 14:57 Dose: 600 mg Hydromorphone HCl (Dilaudid Injection -) 1 mg IVPB Q6H PRN PRN Reason: PAIN Last Admin: 03/17/17 15:05 Dose: 1 mg Aztreonam 1 gm/ Dextrose 50 mls @ 100 mls/hr IVPB Q8H-IV JANETH PRN Reason: Protocol Last Admin: 03/19/17 18:28 Dose: 100 mls/hr Dextrose/Sodium Chloride (D5-1/2ns -) 1,000 mls @ 85 mls/hr IV ASDIR [facility] Last Admin: 03/19/17 17:15 Dose: Not Given Lamivudine/Zidovudine (Combivir Tablet 150/300 -) 1 tablet PO BID [facility] Last Admin: 03/19/17 14:57 Dose: 1 tablet Levetiracetam (Keppra -) 500 mg PO BID [facility] Last Admin: 03/19/17 14:56 Dose: 500 mg Mirtazapine (Remeron -) 15 mg PO HS [facility] Last Admin: 03/18/17 22:30 Dose: 15 mg Pantoprazole Sodium (Protonix -) 40 mg PO DAILY [facility] Last Admin: 03/19/17 10:31 Dose: 40 mg Senna (Senna -) 1 tab PO HS [facility] Last Admin: 03/19/17 02:00 Dose: Not Given Valsartan (Diovan -) 160 mg PO DAILY [facility] Last Admin: 03/19/17 14:56 Dose: 160 mg Zolpidem Tartrate (Ambien -) 5 mg PO HS PRN PRN Reason: INSOMNIA - Objective Vital Signs: Vital Signs Temperature 98.4 F 03/19/17 15:33 Pulse Rate 77 03/19/17 15:33 Respiratory Rate 18 03/19/17 15:33 Blood Pressure 108/58 03/19/17 15:33 O2 Sat by Pulse Oximetry (%) 99 03/19/17 09:00 Constitutional: Yes: Well Nourished Eyes: Yes: PERRL HENT: Yes: Normocephalic Neck: Yes: Supple Cardiovascular: Yes: Regular Rate and Rhythm Respiratory: Yes: CTA Bilaterally Gastrointestinal: Yes: Normal Bowel Sounds, Soft Neurological: Yes: Alert, Oriented Labs: CBC, BMP 03/19/17 06:00 03/18/17 15:35 INR, PTT INR 1.19 (0.82-1.09) H 03/18/17 06:55 Fibrinogen 405.0 mg/dL (238-498) 03/18/17 06:55 Problem List - Problems (1) HIV disease Code(s): B20 - HUMAN IMMUNODEFICIENCY VIRUS [HIV] DISEASE (2) Leukopenia Code(s): D72.819 - DECREASED WHITE BLOOD CELL COUNT, UNSPECIFIED (3) Fever and chills Code(s): R50.9 - FEVER, UNSPECIFIED (4) Penicillin allergy Code(s): Z88.0 - ALLERGY STATUS TO PENICILLIN (5) 4-quinolones allergy Code(s): Z88.1 - ALLERGY STATUS TO OTHER ANTIBIOTIC AGENTS STATUS Assessment/Plan Pt with fever, HIV, leukopenia. CT Scan chest with patchy consolidation. Add Doxycycline Continue Azactam&Vanco for now. Awaiting labs results.
[2017-03-19] MEDS: MIRTAZAPINE 15 MG TABLET (FP) PO SCH (22:02)
[2017-03-20] MEDS: AZTREONAM 1 GM in DEXTROSE 5%-WATER - 50 ML IVPB SCH ×3 (01:16→17:03)
[2017-03-20 08:07] LABS: HEMATOCRIT 31.3 % (34.0-46.6)
[2017-03-20] MEDS ORDERED: PT OWN MED DRAWER 7, Y5N ONE ×3 (09:08→20:43)
[2017-03-20] MEDS: ACETAMINOPHEN 325 MG TABLET (FP) PO PRN ×2 (09:09→21:02)
[2017-03-20] MEDS: VALSARTAN 160 MG TABLET (UD) PO SCH (09:09)
[2017-03-20] MEDS: PANTOPRAZOLE 40 MG TABLET (FP) PO SCH (09:09)
[2017-03-20] MEDS: levETIRAcetam 500 MG TABLET (FP) PO SCH ×2 (09:09→21:02)
[2017-03-20] MEDS: DOXYCYCLINE HYCLATE 100 MG CAPSULE PO SCH ×2 (09:09→17:03)
[2017-03-20] MEDS: EFAVIRENZ 600 MG TABLET PO SCH (09:10)
[2017-03-20] MEDS: lamiVUDine/ZIDOVUDINE 150/300 1 COMBO TABLET PO SCH ×2 (09:10→21:02)
--- NOTE | 2017-03-20 12:57 | PN ---
Progress Note, Physician Chief Complaint: ASLEEP, COMFORTABLE FEVERS CONTINUED - Current Medication List Current Medications: Active Medications Acetaminophen (Tylenol -) 650 mg PO Q6H PRN PRN Reason: FEVER OR PAIN Last Admin: 03/20/17 09:09 Dose: 650 mg Doxycycline Hyclate (Vibramycin -) 100 mg PO BID@10,18 [facility] Last Admin: 03/20/17 09:09 Dose: 100 mg Efavirenz (Sustiva -) 600 mg PO DAILY [facility] Last Admin: 03/20/17 09:10 Dose: 600 mg Hydromorphone HCl (Dilaudid Injection -) 1 mg IVPB Q6H PRN PRN Reason: PAIN Last Admin: 03/17/17 15:05 Dose: 1 mg Aztreonam 1 gm/ Dextrose 50 mls @ 100 mls/hr IVPB Q8H-IV JANETH PRN Reason: Protocol Last Admin: 03/20/17 09:09 Dose: 100 mls/hr Dextrose/Sodium Chloride (D5-1/2ns -) 1,000 mls @ 85 mls/hr IV ASDIR [facility] Last Admin: 03/19/17 17:15 Dose: Not Given Lamivudine/Zidovudine (Combivir Tablet 150/300 -) 1 tablet PO BID [facility] Last Admin: 03/20/17 09:10 Dose: 1 tablet Levetiracetam (Keppra -) 500 mg PO BID [facility] Last Admin: 03/20/17 09:09 Dose: 500 mg Mirtazapine (Remeron -) 15 mg PO HS [facility] Last Admin: 03/19/17 22:02 Dose: 15 mg Pantoprazole Sodium (Protonix -) 40 mg PO DAILY [facility] Last Admin: 03/20/17 09:09 Dose: 40 mg Senna (Senna -) 1 tab PO HS [facility] Last Admin: 03/19/17 22:02 Dose: 1 tab Valsartan (Diovan -) 160 mg PO DAILY [facility] Last Admin: 03/20/17 09:09 Dose: 160 mg Zolpidem Tartrate (Ambien -) 5 mg PO HS PRN PRN Reason: INSOMNIA Last Admin: 03/19/17 22:02 Dose: 5 mg - Objective Vital Signs: Vital Signs Temperature 99.8 F H 03/20/17 12:01 Pulse Rate 95 H 03/20/17 10:00 Respiratory Rate 20 05/13/17 10:00 Blood Pressure 149/81 03/20/17 10:00 O2 Sat by Pulse Oximetry (%) 99 03/20/17 09:00 Constitutional: Yes: No Distress Eyes: Yes: WNL HENT: Yes: WNL Neck: Yes: WNL Cardiovascular: Yes: WNL Respiratory: Yes: On Nasal O2, Rhonchi Gastrointestinal: Yes: WNL Genitourinary: Yes: WNL Musculoskeletal: Yes: Back Pain, Muscle Weakness Extremities: Yes: WNL Edema: No Peripheral Pulses WNL: Yes Integumentary: Yes: WNL Wound/Incision: Yes: Clean/Dry Neurological: Yes: Pre-Existing Deficit ...Motor Strength: LLE, RLE Psychiatric: Yes: Other Labs: CBC, BMP 03/19/17 06:00 03/18/17 15:35 INR, PTT INR 1.19 (0.82-1.09) H 03/18/17 06:55 Fibrinogen 405.0 mg/dL (238-498) 03/18/17 06:55 Problem List - Problems (1) Gastroparesis Code(s): K31.84 - GASTROPARESIS (2) Nausea & vomiting Code(s): R11.2 - NAUSEA WITH VOMITING, UNSPECIFIED (3) AIDS dementia complex Code(s): 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 - HUMAN IMMUNODEFICIENCY VIRUS [HIV] DISEASE F02.80 - DEMENTIA IN OTH DISEASES CLASSD ELSWHR W/O BEHAVRL DISTURB (4) Abdominal pain Code(s): R10.9 - UNSPECIFIED ABDOMINAL PAIN Qualifiers: Abdominal location: unspecified location Qualified Code(s): R10.9 - Unspecified abdominal pain (5) Anemia Code(s): D64.9 - ANEMIA, UNSPECIFIED (6) DM (diabetes mellitus) type II controlled peripheral vascular disorder Code(s): E11.51 - TYPE 2 DIABETES W DIABETIC PERIPHERAL ANGIOPATH W/O GANGRENE (7) Decreased oral intake Code(s): R63.8 - OTHER SYMPTOMS AND SIGNS CONCERNING FOOD AND FLUID INTAKE (8) HIV (human immunodeficiency virus infection) Code(s): Z21 - ASYMPTOMATIC HUMAN IMMUNODEFICIENCY VIRUS INFECTION STATUS (9) Weight loss Code(s): R63.4 - ABNORMAL WEIGHT LOSS (10) Leukopenia Code(s): D72.819 - DECREASED WHITE BLOOD CELL COUNT, UNSPECIFIED (11) DNR (do not resuscitate) Code(s): Z66 - DO NOT RESUSCITATE Assessment/Plan ADVANCED DIRECTIVES DISCUSSED WITH DAUGHTER PATIENT DNR/DNI FEVERS PERSISTENT TYLENOL AND MOTRIN PRN ID FOLLOW UP IV ABX PULM/ID/HEM CONSULTS APPRECIATED AWAITING CD4 COUNT RESULTS AND IMMUNOLOGY LABS PENDING
--- NOTE | 2017-03-20 14:00 | PN ---
Progress Note (short form) - Note Progress Note: PULMONARY States feeling slightly better but still febrile. +nonproductive cough. Last Vital Signs Temp Pulse Resp BP Pulse Ox 99.8 F H 95 H 20 149/81 99 03/20/17 12:01 03/20/17 10:00 03/20/17 10:00 03/20/17 10:00 03/20/17 09:00 Gen: NAD at rest Heart: RRR Lung: scattered rhonchi Abd: soft, nontender Ext: no edema CBC, BMP 03/19/17 06:00 03/18/17 15:35 Active Medications Acetaminophen (Tylenol -) 650 mg PO Q6H PRN PRN Reason: FEVER OR PAIN Last Admin: 03/20/17 09:09 Dose: 650 mg Doxycycline Hyclate (Vibramycin -) 100 mg PO BID@ [facility] Last Admin: 03/20/17 09:09 Dose: 100 mg Efavirenz (Sustiva -) 600 mg PO DAILY [facility] Last Admin: 03/20/17 09:10 Dose: 600 mg Hydromorphone HCl (Dilaudid Injection -) 1 mg IVPB Q6H PRN PRN Reason: PAIN Last Admin: 03/17/17 15:05 Dose: 1 mg Aztreonam 1 gm/ Dextrose 50 mls @ 100 mls/hr IVPB Q8H-IV JANETH PRN Reason: Protocol Last Admin: 03/20/17 09:09 Dose: 100 mls/hr Dextrose/Sodium Chloride (D5-1/2ns -) 1,000 mls @ 85 mls/hr IV ASDIR [facility] Last Admin: 03/19/17 17:15 Dose: Not Given Lamivudine/Zidovudine (Combivir Tablet 150/300 -) 1 tablet PO BID [facility] Last Admin: 03/20/17 09:10 Dose: 1 tablet Levetiracetam (Keppra -) 500 mg PO BID [facility] Last Admin: 03/20/17 09:09 Dose: 500 mg Mirtazapine (Remeron -) 15 mg PO [facility] Last Admin: 03/19/17 22:02 Dose: 15 mg Pantoprazole Sodium (Protonix -) 40 mg PO DAILY [facility] Last Admin: 03/20/17 09:09 Dose: 40 mg Senna (Senna -) 1 tab PO HS [facility] Last Admin: 03/19/17 22:02 Dose: 1 tab Valsartan (Diovan -) 160 mg PO DAILY [facility] Last Admin: 03/20/17 09:09 Dose: 160 mg Zolpidem Tartrate (Ambien -) 5 mg PO HS PRN PRN Reason: INSOMNIA Last Admin: 03/19/17 22:02 Dose: 5 mg A/P HIV Pneumonia Leukopenia - continue antibiotics - f/u cultures - O2 as needed - f/u ART - aspiration precautions - inhaled bronchodilators - DVT prophylaxis
[2017-03-20 14:11] LABS: % CD 4 POS LYM 36.8 % (30.8-58.5); %CD3+CD4+CD8+ 2.2 % (Not Estab.); %CD3+CD4+CD8- 34.6 % (Not Estab.); %CD3+CD4-CD8- 0.1 % (Not Estab.); ABSO. CD 3 360 /uL (622-2402); ABSOLUTE CD 4 HELPER 184 /uL (359-1519); AbsCD3+CD4+CD8+ 11 /uL (Not Estab.); AbsCD3+CD4-CD8+ 175 /uL (Not Estab.); AbsCD3+CD4-CD8- 1 /uL (Not Estab.); CD4/CD8 0.99 (0.92-3.72); CD4/CD8 NYSDOH RATIO 0.99 (Not Estab.); WHITE BLOOD COUNT 2.6 x10E3/uL (3.4-10.8)
[2017-03-20] MEDS: DEXTROSE 5%-0.45% SALINE 1,000 ML IV SCH (17:03)
--- NOTE | 2017-03-20 19:00 | PN ---
Progress Note, Physician Chief Complaint: Fever downtrending. Still with cough, CD4 184, LDH normal - Current Medication List Current Medications: Active Medications Acetaminophen (Tylenol -) 650 mg PO Q6H PRN PRN Reason: FEVER OR PAIN Last Admin: 03/20/17 09:09 Dose: 650 mg Doxycycline Hyclate (Vibramycin -) 100 mg PO BID@10,18 [facility] Last Admin: 03/20/17 17:03 Dose: 100 mg Efavirenz (Sustiva -) 600 mg PO DAILY [facility] Last Admin: 03/20/17 09:10 Dose: 600 mg Hydromorphone HCl (Dilaudid Injection -) 1 mg IVPB Q6H PRN PRN Reason: PAIN Last Admin: 03/17/17 15:05 Dose: 1 mg Aztreonam 1 gm/ Dextrose 50 mls @ 100 mls/hr IVPB Q8H-IV JANETH PRN Reason: Protocol Last Admin: 03/20/17 17:03 Dose: 100 mls/hr Dextrose/Sodium Chloride (D5-1/2ns -) 1,000 mls @ 85 mls/hr IV ASDIR [facility] Last Admin: 03/20/17 17:03 Dose: 85 mls/hr Lamivudine/Zidovudine (Combivir Tablet 150/300 -) 1 tablet PO BID [facility] Last Admin: 03/20/17 09:10 Dose: 1 tablet Levetiracetam (Keppra -) 500 mg PO BID [facility] Last Admin: 03/20/17 09:09 Dose: 500 mg Mirtazapine (Remeron -) 15 mg PO HS [facility] Last Admin: 03/19/17 22:02 Dose: 15 mg Pantoprazole Sodium (Protonix -) 40 mg PO DAILY [facility] Last Admin: 03/20/17 09:09 Dose: 40 mg Senna (Senna -) 1 tab PO HS [facility] Last Admin: 03/19/17 22:02 Dose: 1 tab Valsartan (Diovan -) 160 mg PO DAILY [facility] Last Admin: 03/20/17 09:09 Dose: 160 mg Zolpidem Tartrate (Ambien -) 5 mg PO HS PRN PRN Reason: INSOMNIA Last Admin: 03/19/17 22:02 Dose: 5 mg - Objective Vital Signs: Vital Signs Temperature 98.2 F 03/20/17 15:43 Pulse Rate 85 03/20/17 15:43 Respiratory Rate 16 03/20/17 15:43 Blood Pressure 143/70 03/20/17 15:43 O2 Sat by Pulse Oximetry (%) 99 03/20/17 09:00 Constitutional: Yes: No Distress Eyes: Yes: PERRL HENT: Yes: Normocephalic Neck: Yes: Supple Cardiovascular: Yes: Regular Rate and Rhythm Respiratory: Yes: Rhonchi Gastrointestinal: Yes: Normal Bowel Sounds, Soft Labs: CBC, BMP 03/19/17 06:00 03/18/17 15:35 INR, PTT INR 1.19 (0.82-1.09) H 03/18/17 06:55 Fibrinogen 405.0 mg/dL (238-498) 03/18/17 06:55 Problem List - Problems (1) HIV disease Code(s): B20 - HUMAN IMMUNODEFICIENCY VIRUS [HIV] DISEASE (2) Leukopenia Code(s): D72.819 - DECREASED WHITE BLOOD CELL COUNT, UNSPECIFIED (3) Fever and chills Code(s): R50.9 - FEVER, UNSPECIFIED (4) Penicillin allergy Code(s): Z88.0 - ALLERGY STATUS TO PENICILLIN (5) 4-quinolones allergy Code(s): Z88.1 - ALLERGY STATUS TO OTHER ANTIBIOTIC AGENTS STATUS Assessment/Plan Pt with fever, HIV, leukopenia. CT Scan chest with patchy consolidation. AIDS Cont RX Add Bactrim DS 1 tab q day
--- NOTE | 2017-03-20 19:03 | PN ---
Progress Note (short form) - Note Progress Note: Addendum - (+) BACTRIM allergy Give Atovaquone 1500 mg q day for PCP Prophylaxis Problem List - Problems (1) HIV disease Code(s): B20 - HUMAN IMMUNODEFICIENCY VIRUS [HIV] DISEASE (2) Leukopenia Code(s): D72.819 - DECREASED WHITE BLOOD CELL COUNT, UNSPECIFIED (3) Fever and chills Code(s): R50.9 - FEVER, UNSPECIFIED (4) Penicillin allergy Code(s): Z88.0 - ALLERGY STATUS TO PENICILLIN (5) 4-quinolones allergy Code(s): Z88.1 - ALLERGY STATUS TO OTHER ANTIBIOTIC AGENTS STATUS
[2017-03-20] MEDS: SENNOSIDES 8.6MG TABLET (FP) PO SCH (21:02)
[2017-03-20] MEDS: MIRTAZAPINE 15 MG TABLET (FP) PO SCH (21:02)
[2017-03-20] MEDS: HYDROmorphone HCL CARPU-JECT 1 MG/1 ML DISP.SYRIN IVPB PRN (22:52)
[2017-03-21] MEDS ORDERED: PT OWN MED DRAWER 7, Y5N ONE ×5 (01:03→21:00)
[2017-03-21] MEDS: AZTREONAM 1 GM in DEXTROSE 5%-WATER - 50 ML IVPB SCH ×3 (01:09→17:53)
[2017-03-21] MEDS: DEXTROSE 5%-0.45% SALINE 1,000 ML IV SCH ×2 (06:40→17:53)
[2017-03-21] MEDS: ACETAMINOPHEN 325 MG TABLET (FP) PO PRN ×2 (06:47→17:53)
[2017-03-21] MEDS: ATOVAQUONE 750 MG/5 ML (UNIT-DOSE PACKAGING) PO SCH (09:08)
[2017-03-21] MEDS: DOXYCYCLINE HYCLATE 100 MG CAPSULE PO SCH ×2 (09:36→17:53)
[2017-03-21] MEDS: EFAVIRENZ 600 MG TABLET PO SCH (09:36)
[2017-03-21] MEDS: PANTOPRAZOLE 40 MG TABLET (FP) PO SCH (09:36)
[2017-03-21] MEDS: levETIRAcetam 500 MG TABLET (FP) PO SCH ×2 (09:36→22:32)
[2017-03-21] MEDS: VALSARTAN 160 MG TABLET (UD) PO SCH (09:36)
[2017-03-21] MEDS: lamiVUDine/ZIDOVUDINE 150/300 1 COMBO TABLET PO SCH ×2 (09:37→22:32)
--- NOTE | 2017-03-21 11:20 | PN ---
Progress Note (short form) - Note Progress Note: PULMONARY Fevers persist. CD4 count 184. Last Vital Signs Temp Pulse Resp BP Pulse Ox 102.9 F H 118 H 20 160/90 98 03/21/17 06:48 03/21/17 07:05 03/21/17 07:05 03/20/17 22:00 03/20/17 21:00 Gen: NAD at rest Heart: RRR Lung: scattered rhonchi Abd: soft, nontender Ext: no edema CBC, BMP 03/19/17 06:00 03/18/17 15:35 Active Medications Acetaminophen (Tylenol -) 650 mg PO Q6H PRN PRN Reason: FEVER OR PAIN Last Admin: 03/21/17 06:47 Dose: 650 mg Atovaquone (Mepron -) 1,500 mg PO DAILY@0800 [facility] Last Admin: 03/21/17 09:08 Dose: 1,500 mg Doxycycline Hyclate (Vibramycin -) 100 mg PO BID@10,18 [facility] Last Admin: 03/21/17 09:36 Dose: 100 mg Efavirenz (Sustiva -) 600 mg PO DAILY [facility] Last Admin: 03/21/17 09:36 Dose: 600 mg Hydromorphone HCl (Dilaudid Injection -) 1 mg IVPB Q6H PRN PRN Reason: PAIN Last Admin: 03/20/17 22:52 Dose: 1 mg Aztreonam 1 gm/ Dextrose 50 mls @ 100 mls/hr IVPB Q8H-IV JANETH PRN Reason: Protocol Last Admin: 03/21/17 09:36 Dose: 100 mls/hr Dextrose/Sodium Chloride (D5-1/2ns -) 1,000 mls @ 85 mls/hr IV ASDIR [facility] Last Admin: 03/21/17 06:40 Dose: 85 mls/hr Lamivudine/Zidovudine (Combivir Tablet 150/300 -) 1 tablet PO BID [facility] Last Admin: 03/21/17 09:37 Dose: 1 tablet Levetiracetam (Keppra -) 500 mg PO BID [facility] Last Admin: 03/21/17 09:36 Dose: 500 mg Mirtazapine (Remeron -) 15 mg PO HS [facility] Last Admin: 03/20/17 21:02 Dose: 15 mg Pantoprazole Sodium (Protonix -) 40 mg PO DAILY [facility] Last Admin: 03/21/17 09:36 Dose: 40 mg Senna (Senna -) 1 tab PO HS [facility] Last Admin: 03/20/17 21:02 Dose: 1 tab Valsartan (Diovan -) 160 mg PO DAILY [facility] Last Admin: 03/21/17 09:36 Dose: 160 mg A/P HIV Pneumonia Leukopenia - continue antibiotics - f/u cultures - available for bronchoscopy/BAL if indicated - O2 as needed - continue ART - aspiration precautions - inhaled bronchodilators - DVT prophylaxis
--- NOTE | 2017-03-21 14:12 | PN ---
Progress Note, Physician Chief Complaint: Fevers persist, Has back pains. Less cough. All c/s negative to date. CD4 is 184. - Current Medication List Current Medications: Active Medications Acetaminophen (Tylenol -) 650 mg PO Q6H PRN PRN Reason: FEVER OR PAIN Last Admin: 03/21/17 06:47 Dose: 650 mg Atovaquone (Mepron -) 1,500 mg PO DAILY@0800 [facility] Last Admin: 03/21/17 09:08 Dose: 1,500 mg Doxycycline Hyclate (Vibramycin -) 100 mg PO BID@10,18 [facility] Last Admin: 03/21/17 09:36 Dose: 100 mg Efavirenz (Sustiva -) 600 mg PO DAILY [facility] Last Admin: 03/21/17 09:36 Dose: 600 mg Hydromorphone HCl (Dilaudid Injection -) 1 mg IVPB Q6H PRN PRN Reason: PAIN Last Admin: 03/20/17 22:52 Dose: 1 mg Aztreonam 1 gm/ Dextrose 50 mls @ 100 mls/hr IVPB Q8H-IV JANETH PRN Reason: Protocol Last Admin: 03/21/17 09:36 Dose: 100 mls/hr Dextrose/Sodium Chloride (D5-1/2ns -) 1,000 mls @ 85 mls/hr IV ASDIR [facility] Last Admin: 03/21/17 06:40 Dose: 85 mls/hr Lamivudine/Zidovudine (Combivir Tablet 150/300 -) 1 tablet PO BID [facility] Last Admin: 03/21/17 09:37 Dose: 1 tablet Levetiracetam (Keppra -) 500 mg PO BID [facility] Last Admin: 03/21/17 09:36 Dose: 500 mg Mirtazapine (Remeron -) 15 mg PO HS [facility] Last Admin: 03/20/17 21:02 Dose: 15 mg Pantoprazole Sodium (Protonix -) 40 mg PO DAILY [facility] Last Admin: 03/21/17 09:36 Dose: 40 mg Senna (Senna -) 1 tab PO HS [facility] Last Admin: 03/20/17 21:02 Dose: 1 tab Valsartan (Diovan -) 160 mg PO DAILY [facility] Last Admin: 03/21/17 09:36 Dose: 160 mg - Objective Vital Signs: Vital Signs Temperature 98.3 F 03/21/17 10:00 Pulse Rate 99 H 03/21/17 10:00 Respiratory Rate 18 03/21/17 10:00 Blood Pressure 125/57 03/21/17 10:00 O2 Sat by Pulse Oximetry (%) 98 03/21/17 09:00 Constitutional: Yes: No Distress, Thin Eyes: Yes: Conjunctiva Clear, PERRL HENT: Yes: Normocephalic Neck: Yes: Supple Cardiovascular: Yes: Regular Rate and Rhythm Respiratory: Yes: Regular, CTA Bilaterally Gastrointestinal: Yes: Normal Bowel Sounds, Soft. No: Tenderness Musculoskeletal: Yes: Back Pain Labs: CBC, BMP 03/19/17 06:00 03/18/17 15:35 INR, PTT INR 1.19 (0.82-1.09) H 03/18/17 06:55 Fibrinogen 405.0 mg/dL (238-498) 03/18/17 06:55 Problem List - Problems (1) HIV disease Code(s): B20 - HUMAN IMMUNODEFICIENCY VIRUS [HIV] DISEASE (2) Leukopenia Code(s): D72.819 - DECREASED WHITE BLOOD CELL COUNT, UNSPECIFIED (3) Fever and chills Code(s): R50.9 - FEVER, UNSPECIFIED (4) Penicillin allergy Code(s): Z88.0 - ALLERGY STATUS TO PENICILLIN (5) 4-quinolones allergy Code(s): Z88.1 - ALLERGY STATUS TO OTHER ANTIBIOTIC AGENTS STATUS Assessment/Plan Pt with HIV/AIDS, leukopenia. Pneumonia Cont Atovaquone PCP Prophylaxis If all c/s remain negative: Consider CT C/A/P with IV contrast, Indium-tagged WBC Scan BM Biopsy & c/s (Routine, AFB & Fungus) Check Blood for AFB
--- NOTE | 2017-03-21 21:47 | PN ---
Progress Note, Physician Chief Complaint: ASLEEP, COMFORTABLE FEVERS CONTINUED - Current Medication List Current Medications: Active Medications Acetaminophen (Tylenol -) 650 mg PO Q6H PRN PRN Reason: FEVER OR PAIN Last Admin: 03/21/17 17:53 Dose: 650 mg Atovaquone (Mepron -) 1,500 mg PO DAILY@0800 [facility] Last Admin: 03/21/17 09:08 Dose: 1,500 mg Doxycycline Hyclate (Vibramycin -) 100 mg PO BID@10,18 [facility] Last Admin: 03/21/17 17:53 Dose: 100 mg Efavirenz (Sustiva -) 600 mg PO DAILY [facility] Last Admin: 03/21/17 09:36 Dose: 600 mg Hydromorphone HCl (Dilaudid -) 4 mg PO Q6H PRN PRN Reason: PAIN Aztreonam 1 gm/ Dextrose 50 mls @ 100 mls/hr IVPB Q8H-IV JAN[facility] PRN Reason: Protocol Last Admin: 03/21/17 17:53 Dose: 100 mls/hr Dextrose/Sodium Chloride (D5-1/2ns -) 1,000 mls @ 85 mls/hr IV ASDIR [facility] Last Admin: 03/21/17 17:53 Dose: Not Given Lamivudine/Zidovudine (Combivir Tablet 150/300 -) 1 tablet PO BID [facility] Last Admin: 03/21/17 09:37 Dose: 1 tablet Levetiracetam (Keppra -) 500 mg PO BID [facility] Last Admin: 03/21/17 09:36 Dose: 500 mg Mirtazapine (Remeron -) 15 mg PO HS [facility] Last Admin: 03/20/17 21:02 Dose: 15 mg Pantoprazole Sodium (Protonix -) 40 mg PO DAILY [facility] Last Admin: 03/21/17 09:36 Dose: 40 mg Senna (Senna -) 1 tab PO HS [facility] Last Admin: 03/20/17 21:02 Dose: 1 tab Valsartan (Diovan -) 160 mg PO DAILY [facility] Last Admin: 03/21/17 09:36 Dose: 160 mg - Objective Vital Signs: Vital Signs Temperature 101.6 F H 03/21/17 17:30 Pulse Rate 114 H 03/21/17 17:30 Respiratory Rate 22 03/21/17 17:30 Blood Pressure 179/78 03/21/17 17:30 O2 Sat by Pulse Oximetry (%) 98 03/21/17 09:00 Constitutional: Yes: Mild Distress Eyes: Yes: WNL HENT: Yes: WNL Neck: Yes: WNL Cardiovascular: Yes: WNL Respiratory: Yes: WNL Gastrointestinal: Yes: WNL Genitourinary: Yes: WNL Musculoskeletal: Yes: Back Pain, Muscle Weakness Extremities: Yes: WNL Edema: No Peripheral Pulses WNL: Yes Integumentary: Yes: WNL Wound/Incision: Yes: Clean/Dry Neurological: Yes: Paresthesia, Pre-Existing Deficit ...Motor Strength: LLE, RLE Psychiatric: Yes: Other Labs: CBC, BMP 03/19/17 06:00 03/18/17 15:35 INR, PTT INR 1.19 (0.82-1.09) H 03/18/17 06:55 Fibrinogen 405.0 mg/dL (238-498) 03/18/17 06:55 Problem List - Problems (1) Gastroparesis Code(s): K31.84 - GASTROPARESIS (2) Nausea & vomiting Code(s): R11.2 - NAUSEA WITH VOMITING, UNSPECIFIED (3) AIDS dementia complex Code(s): 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 - HUMAN IMMUNODEFICIENCY VIRUS [HIV] DISEASE F02.80 - DEMENTIA IN OTH DISEASES CLASSD ELSWHR W/O BEHAVRL DISTURB (4) Abdominal pain Code(s): R10.9 - UNSPECIFIED ABDOMINAL PAIN Qualifiers: Abdominal location: unspecified location Qualified Code(s): R10.9 - Unspecified abdominal pain (5) Anemia Code(s): D64.9 - ANEMIA, UNSPECIFIED (6) DM (diabetes mellitus) type II controlled peripheral vascular disorder Code(s): E11.51 - TYPE 2 DIABETES W DIABETIC PERIPHERAL ANGIOPATH W/O GANGRENE (7) Decreased oral intake Code(s): R63.8 - OTHER SYMPTOMS AND SIGNS CONCERNING FOOD AND FLUID INTAKE (8) HIV (human immunodeficiency virus infection) Code(s): Z21 - ASYMPTOMATIC HUMAN IMMUNODEFICIENCY VIRUS INFECTION STATUS (9) Weight loss Code(s): R63.4 - ABNORMAL WEIGHT LOSS (10) Leukopenia Code(s): D72.819 - DECREASED WHITE BLOOD CELL COUNT, UNSPECIFIED (11) DNR (do not resuscitate) Code(s): Z66 - DO NOT RESUSCITATE Assessment/Plan ADVANCED DIRECTIVES DISCUSSED WITH DAUGHTER PATIENT DNR/DNI FEVERS PERSISTENT TYLENOL AND MOTRIN PRN ID FOLLOW UP IV ABX PULM/ID/HEM CONSULTS APPRECIATED AWAITING CD4 COUNT RESULTS AND IMMUNOLOGY LABS PENDING [facility] CONSULT
[2017-03-21] MEDS: MIRTAZAPINE 15 MG TABLET (FP) PO SCH (22:32)
[2017-03-21] MEDS: SENNOSIDES 8.6MG TABLET (FP) PO SCH (22:32)
[2017-03-22] MEDS ORDERED: PT OWN MED DRAWER 7, Y5N ONE ×5 (01:50→21:21)
[2017-03-22] MEDS: AZTREONAM 1 GM in DEXTROSE 5%-WATER - 50 ML IVPB SCH ×3 (02:25→18:09)
--- NOTE | 2017-03-22 07:31 | HOSP ---
Physical Examination Vital Signs: Vital Signs Temperature 97.6 F 03/22/17 06:07 Pulse Rate 86 03/22/17 06:07 Respiratory Rate 20 03/22/17 06:07 Blood Pressure 148/78 03/22/17 06:07 O2 Sat by Pulse Oximetry (%) 98 03/21/17 21:00 Labs: CBC, BMP 03/19/17 06:00 03/18/17 15:35 Hospitalist Encounter Assessment: Notified by RN to evaluate patient s/p fall. According to the nurse patient was found on the floor using the commode. Patient reports she was trying to use the bathroom. Patient somewhat sounds confused but patient is awake, alert , and oriented to person and place. When asking if she is in pain she reports "my head and my butt". When asking again she said her "butt always hurts because I have back problems". When examining, I noticed a sacral ulcer. Otherwise, patient denies chest pain, palpitations, acute vision loss, headaches , shortness of breath. Vitals: Temp: 98.6 Blood pressure: 144/78 Pulse: 84 Physical Exam: HEAD: Atraumatic normocephalic, no ecchymosis ENT: No hemotympanum. PERRL CHEST: No tenderness or pain. RRR , normal s1 and s2 LUNGS: rhonchi throughout lung bases bilaterally ABDOMEN: Soft, nontender, nondistended, no ecchymosis Extremities: No peripheral edema. 1x1 cm sacral decubitis RECOMMENDATION: -STAT CT -X-ray of back -Continue to monitor for any neurological changes. Visit type - Emergency Visit Emergency Visit: Yes ED Registration Date: 03/16/17 Care time: The patient presented to the Emergency Department on the above date and was hospitalized for further evaluation of their emergent condition. - New Patient This patient is new to me today: Yes Date on this admission: 03/22/17 - Critical Care Critical Care patient: Yes Total Critical Care Time (in minutes): 35 Critical Care Statement: The care of this patient involved high complexity decision making to prevent further life threatening deterioration of the patient 's condition and/or to evalute & treat vital organ system(s) failure or risk of failure.
[2017-03-22] MEDS: VALSARTAN 160 MG TABLET (UD) PO SCH (10:18)
[2017-03-22] MEDS: DOXYCYCLINE HYCLATE 100 MG CAPSULE PO SCH ×2 (10:18→18:09)
[2017-03-22] MEDS: levETIRAcetam 500 MG TABLET (FP) PO SCH ×2 (10:18→21:45)
[2017-03-22] MEDS: PANTOPRAZOLE 40 MG TABLET (FP) PO SCH (10:18)
--- NOTE | 2017-03-22 10:18 | PN ---
Progress Note (short form) - Note Progress Note: Events noted. Fell while transferring from the commode. LBP. No CP or SOB. Afebrile today. Intake & Output 03/19/17 03/20/17 03/21/17 03/22/17 23:59 23:59 23:59 23:59 Intake Total 1680 2095 400 Output Total 50 Balance 1680 2045 400 Weight 120 lb 2 oz Last Vital Signs Temp Pulse Resp BP Pulse Ox 97.6 F 86 20 148/78 98 03/22/17 06:07 03/22/17 06:07 03/22/17 06:07 03/22/17 06:07 03/21/17 21:00 Active Medications Acetaminophen (Tylenol -) 650 mg PO Q6H PRN PRN Reason: FEVER OR PAIN Last Admin: 03/21/17 17:53 Dose: 650 mg Atovaquone (Mepron -) 1,500 mg PO DAILY@0800 [facility] Last Admin: 03/21/17 09:08 Dose: 1,500 mg Doxycycline Hyclate (Vibramycin -) 100 mg PO BID@10,18 [facility] Last Admin: 03/21/17 17:53 Dose: 100 mg Efavirenz (Sustiva -) 600 mg PO DAILY [facility] Last Admin: 03/21/17 09:36 Dose: 600 mg Hydromorphone HCl (Dilaudid -) 4 mg PO Q6H PRN PRN Reason: PAIN Last Admin: 03/21/17 22:32 Dose: 4 mg Aztreonam 1 gm/ Dextrose 50 mls @ 100 mls/hr IVPB Q8H-IV [facility]AN[facility] PRN Reason: Protocol Last Admin: 03/22/17 02:25 Dose: 100 mls/hr Dextrose/Sodium Chloride (D5-1/2ns -) 1,000 mls @ 85 mls/hr IV ASDIR [facility] Last Admin: 03/21/17 17:53 Dose: Not Given Lamivudine/Zidovudine (Combivir Tablet 150/300 -) 1 tablet PO BID [facility] Last Admin: 03/21/17 22:32 Dose: 1 tablet Levetiracetam (Keppra -) 500 mg PO BID [facility] Last Admin: 03/21/17 22:32 Dose: 500 mg Mirtazapine (Remeron -) 15 mg PO HS [facility] Last Admin: 03/21/17 22:32 Dose: 15 mg Pantoprazole Sodium (Protonix -) 40 mg PO DAILY [facility] Last Admin: 03/21/17 09:36 Dose: 40 mg Senna (Senna -) 1 tab PO HS [facility] Last Admin: 03/21/17 22:32 Dose: Not Given Valsartan (Diovan -) 160 mg PO DAILY [facility] Last Admin: 03/21/17 09:36 Dose: 160 mg Gen: NAD at rest Heart: RRR Lung: few scattered rhonchi Abd: soft, nontender Ext: no edema A/P HIV RML Pneumonia Leukopenia - ABX per ID - f/u final cultures - Doubt bronchoscopy/BAL would be diagnostic/helpful given the minimal changes noted on CT imaging - O2 as needed - ART per ID - aspiration precautions - inhaled bronchodilators - DVT prophylaxis Dr Colby
[2017-03-22] MEDS: EFAVIRENZ 600 MG TABLET PO SCH (10:19)
[2017-03-22] MEDS: ATOVAQUONE 750 MG/5 ML (UNIT-DOSE PACKAGING) PO SCH (10:19)
[2017-03-22] MEDS: lamiVUDine/ZIDOVUDINE 150/300 1 COMBO TABLET PO SCH ×2 (10:19→21:45)
[2017-03-22] MEDS: ACETAMINOPHEN 325 MG TABLET (FP) PO PRN (10:37)
[2017-03-22] MEDS: DEXTROSE 5%-0.45% SALINE 1,000 ML IV SCH (18:13)
--- NOTE | 2017-03-22 20:12 | PN ---
Progress Note, Physician Chief Complaint: ASLEEP AROUSABLE FATIGUE - Current Medication List Current Medications: Active Medications Acetaminophen (Tylenol -) 650 mg PO Q6H PRN PRN Reason: FEVER OR PAIN Last Admin: 03/22/17 10:37 Dose: 650 mg Atovaquone (Mepron -) 1,500 mg PO DAILY@0800 [facility] Last Admin: 03/22/17 10:19 Dose: 1,500 mg Doxycycline Hyclate (Vibramycin -) 100 mg PO BID@10,18 [facility] Last Admin: 03/22/17 18:09 Dose: 100 mg Efavirenz (Sustiva -) 600 mg PO DAILY [facility] Last Admin: 03/22/17 10:19 Dose: 600 mg Hydromorphone HCl (Dilaudid -) 4 mg PO Q6H PRN PRN Reason: PAIN Last Admin: 03/21/17 22:32 Dose: 4 mg Aztreonam 1 gm/ Dextrose 50 mls @ 100 mls/hr IVPB Q8H-IV JANETH PRN Reason: Protocol Last Admin: 03/22/17 18:09 Dose: 100 mls/hr Dextrose/Sodium Chloride (D5-1/2ns -) 1,000 mls @ 85 mls/hr IV ASDIR [facility] Last Admin: 03/22/17 18:13 Dose: 85 mls/hr Lamivudine/Zidovudine (Combivir Tablet 150/300 -) 1 tablet PO BID [facility] Last Admin: 03/22/17 10:19 Dose: 1 tablet Levetiracetam (Keppra -) 500 mg PO BID [facility] Last Admin: 03/22/17 10:18 Dose: 500 mg Mirtazapine (Remeron -) 15 mg PO HS [facility] Last Admin: 03/21/17 22:32 Dose: 15 mg Pantoprazole Sodium (Protonix -) 40 mg PO DAILY [facility] Last Admin: 03/22/17 10:18 Dose: 40 mg Senna (Senna -) 1 tab PO [facility] Last Admin: 03/21/17 22:32 Dose: Not Given Valsartan (Diovan -) 160 mg PO DAILY [facility] Last Admin: 03/22/17 10:18 Dose: 160 mg - Objective Vital Signs: Vital Signs Temperature 99 F 03/22/17 18:00 Pulse Rate 88 03/22/17 18:00 Respiratory Rate 18 03/22/17 18:00 Blood Pressure 118/60 03/22/17 18:00 O2 Sat by Pulse Oximetry (%) 98 03/22/17 09:00 Constitutional: Yes: Moderate Distress Eyes: Yes: WNL HENT: Yes: WNL Neck: Yes: WNL Cardiovascular: Yes: WNL Respiratory: Yes: WNL Gastrointestinal: Yes: WNL Genitourinary: Yes: WNL Musculoskeletal: Yes: Muscle Weakness Extremities: Yes: WNL Edema: No Peripheral Pulses WNL: Yes Integumentary: Yes: WNL Wound/Incision: Yes: Clean/Dry Neurological: Yes: Weakness ...Motor Strength: LLE, RLE Psychiatric: Yes: Other Labs: CBC, BMP 03/19/17 06:00 03/18/17 15:35 INR, PTT INR 1.19 (0.82-1.09) H 03/18/17 06:55 Fibrinogen 405.0 mg/dL (238-498) 03/18/17 06:55 Problem List - Problems (1) Gastroparesis Code(s): K31.84 - GASTROPARESIS (2) Nausea & vomiting Code(s): R11.2 - NAUSEA WITH VOMITING, UNSPECIFIED (3) AIDS dementia complex Code(s): B20 - HUMAN IMMUNODEFICIENCY VIRUS [HIV] DISEASE F02.80 - DEMENTIA IN OTH DISEASES CLASSD ELSWHR W/O BEHAVRL DISTURB (4) Abdominal pain Code(s): R10.9 - UNSPECIFIED ABDOMINAL PAIN Qualifiers: Abdominal location: unspecified location Qualified Code(s): R10.9 - Unspecified abdominal pain (5) Anemia Code(s): D64.9 - ANEMIA, UNSPECIFIED (6) DM (diabetes mellitus) type II controlled peripheral vascular disorder Code(s): E11.51 - TYPE 2 DIABETES W DIABETIC PERIPHERAL ANGIOPATH W/O GANGRENE (7) Decreased oral intake Code(s): R63.8 - OTHER SYMPTOMS AND SIGNS CONCERNING FOOD AND FLUID INTAKE (8) HIV (human immunodeficiency virus infection) Code(s): Z21 - ASYMPTOMATIC HUMAN IMMUNODEFICIENCY VIRUS INFECTION STATUS (9) Weight loss Code(s): R63.4 - ABNORMAL WEIGHT LOSS (10) Leukopenia Code(s): D72.819 - DECREASED WHITE BLOOD CELL COUNT, UNSPECIFIED (11) DNR (do not resuscitate) Code(s): Z66 - DO NOT RESUSCITATE Assessment/Plan FEVERS CONTINUE IV ABX PER ID HIV AIDS [facility] SNF
[2017-03-22] MEDS: SENNOSIDES 8.6MG TABLET (FP) PO SCH (21:45)
[2017-03-22] MEDS: MIRTAZAPINE 15 MG TABLET (FP) PO SCH (21:45)
[2017-03-23] MEDS: AZTREONAM 1 GM in DEXTROSE 5%-WATER - 50 ML IVPB SCH ×3 (02:45→17:50)
[2017-03-23 08:01] LABS: MCH 27.4 pg (25.7-33.7); MCHC 32.8 g/dl (32.0-36.0); MEAN CELL VOLUME 83.5 fl (80-96); MEAN PLT VOLUME 7.7 fl (7.5-11.1); PLATELET COUNT 227 K/MM3 (134-434); RDW 18.3 % (11.6-15.6)
[2017-03-23 08:12] LABS: WHITE BLOOD COUNT 1.9 K/mm3 (4.0-10.0)
[2017-03-23] MEDS ORDERED: PT OWN MED DRAWER 7, Y5N ONE ×4 (08:16→21:09)
[2017-03-23 08:27] LABS: ALBUMIN 2.4 g/dl (3.4-5.0); ANION GAP 17 (8-16); CALCIUM 8.4 mg/dL (8.5-10.1); CO2 13 mmol/L (21-32); COCKROFT - GAULT 50.6515; CREATININE 0.8 mg/dL (0.55-1.02); GLUCOSE,RANDOM 134 mg/dL (74-106); SGOT/AST 44 U/L (15-37); SGPT/ALT 38 U/L (12-78)
[2017-03-23 08:29] LABS: ALK PHOS 233 U/L (45-117); BILIRUBIN,TOTAL 0.5 mg/dL (0.2-1.0); TOT PROT 7.4 g/dl (6.4-8.2)
[2017-03-23] MEDS: DEXTROSE 5%-0.45% SALINE 1,000 ML IV SCH ×2 (09:14→21:24)
[2017-03-23] MEDS: VALSARTAN 160 MG TABLET (UD) PO SCH (09:26)
[2017-03-23] MEDS: lamiVUDine/ZIDOVUDINE 150/300 1 COMBO TABLET PO SCH ×2 (09:26→21:24)
[2017-03-23] MEDS: PANTOPRAZOLE 40 MG TABLET (FP) PO SCH (09:27)
[2017-03-23] MEDS: ATOVAQUONE 750 MG/5 ML (UNIT-DOSE PACKAGING) PO SCH (09:27)
[2017-03-23] MEDS: EFAVIRENZ 600 MG TABLET PO SCH (09:27)
[2017-03-23] MEDS: levETIRAcetam 500 MG TABLET (FP) PO SCH ×2 (09:27→21:23)
[2017-03-23] MEDS: DOXYCYCLINE HYCLATE 100 MG CAPSULE PO SCH ×2 (09:28→17:48)
[2017-03-23 09:50] LABS: INR 1.18 (0.82-1.09)
[2017-03-23 09:53] LABS: ACTIVATED PTT 41.5 SECONDS (26.9-34.4)
--- NOTE | 2017-03-23 11:03 | PN ---
Progress Note (short form) - Note Progress Note: No significant clinical change. No acute events overnight. Still with LBP. No CP or SOB. Afebrile. Intake & Output 03/20/17 03/21/17 03/22/17 03/23/17 23:59 23:59 23:59 23:59 Intake Total 2095 400 1150 1000 Output Total 50 1 Balance 2045 400 1149 1000 Last Vital Signs Temp Pulse Resp BP Pulse Ox 98.6 F 108 H 20 138/77 98 03/23/17 06:47 03/23/17 06:47 03/23/17 06:47 03/23/17 06:47 03/22/17 21:00 Active Medications Acetaminophen (Tylenol -) 650 mg PO Q6H PRN PRN Reason: FEVER OR PAIN Last Admin: 03/22/17 10:37 Dose: 650 mg Atovaquone (Mepron -) 1,500 mg PO DAILY@0800 [facility] Last Admin: 03/23/17 09:27 Dose: 1,500 mg Doxycycline Hyclate (Vibramycin -) 100 mg PO BID@10,18 [facility] Last Admin: 03/23/17 09:28 Dose: 100 mg Efavirenz (Sustiva -) 600 mg PO DAILY [facility] Last Admin: 03/23/17 09:27 Dose: 600 mg Hydromorphone HCl (Dilaudid -) 4 mg PO Q6H PRN PRN Reason: PAIN Last Admin: 03/21/17 22:32 Dose: 4 mg Aztreonam 1 gm/ Dextrose 50 mls @ 100 mls/hr IVPB Q8H-IV JANETH PRN Reason: Protocol Last Admin: 03/23/17 09:28 Dose: 100 mls/hr Dextrose/Sodium Chloride (D5-1/2ns -) 1,000 mls @ 85 mls/hr IV ASDIR [facility] Last Admin: 03/23/17 09:14 Dose: 85 mls/hr Lamivudine/Zidovudine (Combivir Tablet 150/300 -) 1 tablet PO BID [facility] Last Admin: 03/23/17 09:26 Dose: 1 tablet Levetiracetam (Keppra -) 500 mg PO BID [facility] Last Admin: 03/23/17 09:27 Dose: 500 mg Mirtazapine (Remeron -) 15 mg PO HS [facility] Last Admin: 03/22/17 21:45 Dose: 15 mg Pantoprazole Sodium (Protonix -) 40 mg PO DAILY [facility] Last Admin: 03/23/17 09:27 Dose: 40 mg Senna (Senna -) 1 tab PO HS [facility] Last Admin: 03/22/17 21:45 Dose: 1 tab Valsartan (Diovan -) 160 mg PO DAILY [facility] Last Admin: 03/23/17 09:26 Dose: 160 mg Gen: NAD at rest Heart: RRR Lung: few scattered rhonchi Abd: soft, nontender Ext: no edema Laboratory Results - last 24 hr 03/18/17 03/23/17 03/23/17 06:55 06:00 06:20 WBC 1.9 L* RBC 3.83 Hgb 10.5 L Hct 32.0 L MCV 83.5 MCHC 32.8 RDW 18.3 H Plt Count 227 D MPV 7.7 Neutrophils % Y Lymphocytes % Y INR PTT (Actin FS) Fibrinogen Sodium 133 L Potassium 2.8 L* Chloride 103 Carbon Dioxide 13 L Anion Gap 17 H BUN 14 D Creatinine 0.8 Creat Clearance w eGFR > 60 Random Glucose 134 H Calcium 8.4 L Iron 34 TIBC 220 L Iron Saturation 15 Total Bilirubin 0.5 D AST 44 H D ALT 38 D Alkaline Phosphatase 233 H D Total Protein 7.4 Albumin 2.4 L 03/23/17 06:20 WBC RBC Hgb Hct MCV MCHC RDW Plt Count MPV Neutrophils % Lymphocytes % INR 1.18 H PTT (Actin FS) 41.5 H Fibrinogen 480.0 Sodium Potassium Chloride Carbon Dioxide Anion Gap BUN Creatinine Creat Clearance w eGFR Random Glucose Calcium Iron TIBC Iron Saturation Total Bilirubin AST ALT Alkaline Phosphatase Total Protein Albumin A/P HIV RML Pneumonia Leukopenia Hypokalemia - Replete lytes - ABX per ID - Doubt bronchoscopy/BAL would be diagnostic/helpful given the minimal changes noted on CT imaging - O2 as needed - ART per ID - aspiration precautions - Inhaled bronchodilators - DVT prophylaxis Dr Colby
[2017-03-23] MEDS ORDERED: POTASSIUM CHLORIDE ORAL LIQUID 20 MEQ/15 ML PO ONE (13:58)
[2017-03-23 14:16] LABS: A/G RATIO 0.7 (0.7-1.7); ALBUMIN 2.9 g/dL (2.9-4.4); GLOBULIN, TOTAL 3.9 g/dL (2.2-3.9); M-SPIKE Not Observed g/dL (Not Observed); TOTAL PROTEIN 6.8 g/dL (6.0-8.5)
[2017-03-23] MEDS: KCL 10 MEQ IVPB 100 ML IVPB SCH ×2 (14:47→20:31)
[2017-03-23 15:10] LABS: PLATELET ESTIMATE ADEQUATE (NORMAL)
[2017-03-23] MEDS ORDERED: POTASSIUM CHLORIDE TABS 20 MEQ TABLET.ER (FP) PO ONE (17:00)
--- NOTE | 2017-03-23 17:02 | PN ---
Progress Note, Physician Chief Complaint: Pt weak, afebrile. [facility] - Current Medication List Current Medications: Active Medications Acetaminophen (Tylenol -) 650 mg PO Q6H PRN PRN Reason: FEVER OR PAIN Last Admin: 03/22/17 10:37 Dose: 650 mg Atovaquone (Mepron -) 1,500 mg PO DAILY@0800 [facility] Last Admin: 03/23/17 09:27 Dose: 1,500 mg Doxycycline Hyclate (Vibramycin -) 100 mg PO BID@10,18 [facility] Last Admin: 03/23/17 09:28 Dose: 100 mg Efavirenz (Sustiva -) 600 mg PO DAILY [facility] Last Admin: 03/23/17 09:27 Dose: 600 mg Hydromorphone HCl (Dilaudid -) 4 mg PO Q6H PRN PRN Reason: PAIN Last Admin: 03/21/17 22:32 Dose: 4 mg Aztreonam 1 gm/ Dextrose 50 mls @ 100 mls/hr IVPB Q8H-IV JANETH PRN Reason: Protocol Last Admin: 03/23/17 09:28 Dose: 100 mls/hr Dextrose/Sodium Chloride (D5-1/2ns -) 1,000 mls @ 85 mls/hr IV ASDIR [facility] Last Admin: 03/23/17 09:14 Dose: 85 mls/hr Lamivudine/Zidovudine (Combivir Tablet 150/300 -) 1 tablet PO BID [facility] Last Admin: 03/23/17 09:26 Dose: 1 tablet Levetiracetam (Keppra -) 500 mg PO BID [facility] Last Admin: 03/23/17 09:27 Dose: 500 mg Mirtazapine (Remeron -) 15 mg PO HS [facility] Last Admin: 03/22/17 21:45 Dose: 15 mg Pantoprazole Sodium (Protonix -) 40 mg PO DAILY [facility] Last Admin: 03/23/17 09:27 Dose: 40 mg Senna (Senna -) 1 tab PO [facility] Last Admin: 03/22/17 21:45 Dose: 1 tab Valsartan (Diovan -) 160 mg PO DAILY [facility] Last Admin: 03/23/17 09:26 Dose: 160 mg - Objective Vital Signs: Vital Signs Temperature 97.3 F L 03/23/17 15:40 Pulse Rate 96 H 03/23/17 15:40 Respiratory Rate 20 03/23/17 15:40 Blood Pressure 140/73 03/23/17 15:40 O2 Sat by Pulse Oximetry (%) 98 03/22/17 21:00 Constitutional: Yes: No Distress Eyes: Yes: PERRL Neck: Yes: Trachea Midline Cardiovascular: Yes: Regular Rate and Rhythm Respiratory: Yes: Regular, CTA Bilaterally Gastrointestinal: Yes: Normal Bowel Sounds, Soft Labs: CBC, BMP 03/23/17 06:00 03/23/17 06:20 INR, PTT INR 1.18 (0.82-1.09) H 03/23/17 06:20 Fibrinogen 480.0 mg/dL (238-498) 03/23/17 06:20 Problem List - Problems (1) HIV disease Code(s): B20 - HUMAN IMMUNODEFICIENCY VIRUS [HIV] DISEASE (2) Leukopenia Code(s): D72.819 - DECREASED WHITE BLOOD CELL COUNT, UNSPECIFIED (3) Fever and chills Code(s): R50.9 - FEVER, UNSPECIFIED (4) Penicillin allergy Code(s): Z88.0 - ALLERGY STATUS TO PENICILLIN (5) 4-quinolones allergy Code(s): Z88.1 - ALLERGY STATUS TO OTHER ANTIBIOTIC AGENTS STATUS Assessment/Plan Pt with HIV/AIDS, leukopenia. Pneumonia Cont Atovaquone PCP Prophylaxis. Continue Doxycycline Etiology of fevers unclear - fever appears to have resolved. IF Fevers recur then: Consider CT C/A/P with IV contrast, Indium-tagged WBC Scan BM Biopsy & c/s (Routine, AFB & Fungus)
[2017-03-23] MEDS: SENNOSIDES 8.6MG TABLET (FP) PO SCH (21:23)
[2017-03-23] MEDS: MIRTAZAPINE 15 MG TABLET (FP) PO SCH (21:23)
[2017-03-24] MEDS: AZTREONAM 1 GM in DEXTROSE 5%-WATER - 50 ML IVPB SCH ×2 (01:44→10:38)
[2017-03-24] MEDS ORDERED: PT OWN MED DRAWER 7, Y5N ONE ×3 (08:39→21:22)
[2017-03-24] MEDS: ATOVAQUONE 750 MG/5 ML (UNIT-DOSE PACKAGING) PO SCH (08:44)
[2017-03-24] MEDS: lamiVUDine/ZIDOVUDINE 150/300 1 COMBO TABLET PO SCH ×2 (10:36→22:21)
[2017-03-24] MEDS: VALSARTAN 160 MG TABLET (UD) PO SCH (10:36)
[2017-03-24] MEDS: PANTOPRAZOLE 40 MG TABLET (FP) PO SCH (10:37)
[2017-03-24] MEDS: DOXYCYCLINE HYCLATE 100 MG CAPSULE PO SCH ×2 (10:37→17:58)
[2017-03-24] MEDS: levETIRAcetam 500 MG TABLET (FP) PO SCH ×2 (10:37→22:21)
[2017-03-24] MEDS: EFAVIRENZ 600 MG TABLET PO SCH (10:37)
[2017-03-24 10:51] LABS: CALCIUM 8.7 mg/dL (8.5-10.1); COCKROFT - GAULT 44.8545; CREATININE 0.8 mg/dL (0.55-1.02)
--- NOTE | 2017-03-24 14:58 | DS ---
Physical Examination Vital Signs: Vital Signs Temperature 98.2 F 03/24/17 08:00 Pulse Rate 105 H 03/24/17 08:00 Respiratory Rate 17 03/24/17 08:00 Blood Pressure 131/71 03/24/17 08:00 O2 Sat by Pulse Oximetry (%) 98 03/23/17 21:00 Findings/Remarks: PATIENT REFUSING IV MEDICATIONS AND PHLEBOTOMY DRAWS WANTS TO BE DNR/DNI PATIENT HAS CAPACITY TO MAKE DECISIONS Constitutional: Yes: Mild Distress Eyes: Yes: WNL HENT: Yes: WNL Neck: Yes: WNL Cardiovascular: Yes: WNL Respiratory: Yes: On Nasal O2, SOB Gastrointestinal: Yes: WNL Renal/: Yes: Other Musculoskeletal: Yes: Muscle Weakness Extremities: Yes: Other Peripheral Pulses WNL: Yes Integumentary: Yes: WNL Wound/Incision: Yes: Clean/Dry Neurological: Yes: Pre-Existing Deficit, Weakness ...Motor Strength: LLE, RLE Psychiatric: Yes: Agitated Labs: CBC, BMP 03/23/17 06:00 03/24/17 09:54 Discharge Summary Reason For Visit: NAUSEA AND VOMITING Current Active Problems 4-quinolones allergy (Acute) Cholelithiasis (Acute) DNR (do not resuscitate) (Acute) Fever and chills (Acute) Gastroparesis (Acute) HIV disease (Acute) Hydronephrosis (Acute) Infiltrate noted on imaging study (Acute) Leukopenia (Acute) Nausea & vomiting (Acute) Penicillin allergy (Acute) Procedures: Principal: CT SCAN Other Procedures: LABS/XRAYS Hospital Course: ADMITTED WITH AIDS SYNDROME, WEAKNESS, POOR APPETITE, DISCUSSED WITH PATIENT AND HER DAUGHTER THE IMPORTANCE OF TREATMENT AND BEING COMPLIANT WITH MEDICATIONS. PATIENT HAS BEEN TELLING ME SHE WANTS TO BE DNR/DNI AND COMFORT CARE. REFUSING LABS AND IV MEDS. WILL SEND TO SNF WITH PO ABX Condition: Guarded - Instructions Diet, Activity, Other Instructions: REG Referrals: Tom Young MD [Primary Care Provider] - Disposition: [facility] - Home Medications Comprehensive Discharge Medication List: Ambulatory Orders Efavirenz [Sustiva] 600 mg PO HS 02/11/15 Lamivudine/Zidovudine [Combivir Tablet] 1 each PO BID 02/11/15 Potassium Chloride [K-Dur] 20 meq PO DAILY 02/11/15 Sennosides [Senna -] 1 tab PO TID 02/11/15 Valsartan/Hydrochlorothiazide [Diovan Hct 160-25 mg Tablet] 1 tab PO DAILY 02/11 Levetiracetam [Keppra -] 750 mg PO BID #60 tablet 02/14/15 Pantoprazole Sodium [Protonix] 40 mg PO DAILY #60 tablet. 10/12/15 Zolpidem Tartrate [Ambien] 10 mg PO HS PRN #10 tablet 10/12/15 Cefuroxime Axetil [Ceftin -] 500 mg PO BIDPC #14 tablet 01/11/16 Lidocaine 5% Patch [Lidoderm -] 1 patch TP DAILY #30 patch 01/11/16 Ondansetron [Zofran *Odt*] 4 mg SL TID #30 od.tablet 03/10/17
--- NOTE | 2017-03-24 14:58 | PN ---
Physical Exam: SUBJECTIVE: Patient seen and examined at bed side. patient reports feeling better, but feeling lethargic. requesting to go home. Refusing imaging and IV lines. No significant clinical change. fell while moving to commode Still with LBP. No CP or SOB. Afebrile. The patient denies chest pain, shortness of breath, headache and dizziness. Denies fever, chills, diarrhea and constipation. Denies dysuria, frequency, urgency and hematuria. OBJECTIVE: Vital Signs Period Temp Pulse Resp BP Sys/Bland Pulse Ox Last 24 Hr 97.3 F-98.7 F 95-111 17-20 128-166/59-96 98 GENERAL: The patient is awake, alert, and fully oriented, in no acute distress. lethargic HEAD: Normal with no signs of trauma. EYES: PERRL, extraocular movements intact, sclera anicteric, conjunctiva clear. No ptosis. ENT: Ears normal, nares patent, oropharynx clear without exudates, moist mucous membranes. NECK: Trachea midline, full range of motion, supple. LUNGS: decreased breath sounds at bases, scattered rhonchi, clear to auscultation bilaterally, no wheezes, no crackles, no accessory muscle use. HEART: Regular rate and rhythm, S1, S2 without murmur, rub or gallop. ABDOMEN: Soft, nontender, nondistended, normoactive bowel sounds, no guarding, no rebound, no hepatosplenomegaly, no masses. EXTREMITIES: 2+ pulses, warm, well-perfused, no edema. NEUROLOGICAL: Cranial nerves II through XII grossly intact. Normal speech, gait not observed. PSYCH: Normal mood, normal affect. SKIN: Warm, dry, normal turgor, no rashes or lesions noted Laboratory Results - last 24 hr 03/23/17 03/24/17 06:00 09:54 Neutrophils % 68.0 Lymphocytes % 24.0 D Monocytes % 6.0 Differential Comment Manual diff done Reactive Lymphocytes 2 Platelet Estimate Adequate Sodium 134 L Potassium 3.3 L Chloride 105 Carbon Dioxide 13 L Anion Gap 16 BUN 19 H D Creatinine 0.8 Random Glucose 100 D Calcium 8.7 Active Medications Generic Name Dose Route Start Last Admin Trade Name Freq PRN Reason Stop Dose Admin Acetaminophen 650 mg 03/16/17 20:55 03/22/17 10:37 Tylenol - PO 650 mg Q6H PRN Administration FEVER OR PAIN Atovaquone 1,500 mg 03/21/17 08:00 03/24/17 08:44 Mepron - PO 1,500 mg DAILY@0800 JANETH Administration Doxycycline Hyclate 100 mg 03/19/17 18:00 03/24/17 10:37 Vibramycin - PO 100 mg BID@10,18 JANETH Administration Efavirenz 600 mg 03/17/17 10:00 03/24/17 10:37 Sustiva - PO 600 mg DAILY JANETH Administration Hydromorphone HCl 4 mg 03/21/17 21:23 03/24/17 01:44 Dilaudid - PO 4 mg Q6H PRN Administration PAIN Aztreonam 1 gm/ Dextrose 50 mls @ 100 mls/hr 03/18/17 10:00 03/24/17 10:38 IVPB Not Given Q8H-IV JANETH Protocol Dextrose/Sodium Chloride 1,000 mls @ 85 mls/hr 03/18/17 17:00 03/23/17 21:24 D5-1/2ns - IV Not Given ASDIR JANETH Lamivudine/Zidovudine 1 tablet 03/16/17 22:00 03/24/17 10:36 Combivir Tablet 150/300 - PO 1 tablet BID JANETH Administration Levetiracetam 500 mg 03/16/17 22:00 03/24/17 10:37 Keppra - PO 500 mg BID JANETH Administration Mirtazapine 15 mg 03/18/17 22:00 03/23/17 21:23 Remeron - PO 15 mg HS JANETH Administration Pantoprazole Sodium 40 mg 03/17/17 10:00 03/24/17 10:37 Protonix - PO 40 mg DAILY JANETH Administration Senna 1 tab 03/16/17 22:00 03/23/17 21:23 Senna - PO 1 tab HS JANETH Administration Valsartan 160 mg 03/17/17 10:00 03/24/17 10:36 Diovan - PO 160 mg DAILY JANETH Administration ASSESSMENT/PLAN: 76 year old female, with a significant past medical history of Breast CA, asthma, CVA, COPD, CHF, diabetes, HTN, HIV, HLD, diverticulitis, seizures and neuropathy,neck and back herniated disc, who presents to the emergency department after being sent by her PMD for evaluation. back pain: s/p fall: possibly positional v sacral ulcer: patient refuses imaging of back/spin/hip and head . tachycardia HIV/AIDS, leukopenia RML Pneumonia Leukopenia Cont Atovaquone PCP Prophylaxis per ID Continue Doxycycline per ID Fever resolved: unknown origin f/u final cultures I agree that it is Doubt bronchoscopy/BAL would be diagnostic/helpful given the minimal changes noted on CT imaging O2 supplemental PRn aspiration precautions inhaled bronchodilators DVT prophylaxis dispo: patient awaiting transfer to SNF Visit type - Emergency Visit Emergency Visit: Yes ED Registration Date: 03/16/17 Care time: The patient presented to the Emergency Department on the above date and was hospitalized for further evaluation of their emergent condition. - New Patient This patient is new to me today: No - Critical Care Critical Care patient: No
--- NOTE | 2017-03-24 15:00 | PN ---
Teaching Attending Note Name of Resident: Anderson Hanson ATTENDING PHYSICIAN STATEMENT I saw and evaluated the patient. I reviewed the resident's note and discussed the case with the resident. I agree with the resident's findings and plan as documented. Dean Correa MD Problem List - Problems (1) HIV disease Code(s): B20 - HUMAN IMMUNODEFICIENCY VIRUS [HIV] DISEASE (2) Leukopenia Code(s): D72.819 - DECREASED WHITE BLOOD CELL COUNT, UNSPECIFIED (3) Nausea & vomiting Code(s): R11.2 - NAUSEA WITH VOMITING, UNSPECIFIED (4) Infiltrate noted on imaging study Code(s): R93.8 - ABNORMAL FINDINGS ON DIAGNOSTIC IMAGING OF BODY STRUCTURES
--- NOTE | 2017-03-24 21:17 | PN ---
Progress Note (short form) - Note Progress Note: Patient seen and examined Wants to be left alone Reluctant to answer details Last Vital Signs Temp Pulse Resp BP Pulse Ox 99 F 93 H 20 125/70 98 03/24/17 18:30 03/24/17 18:30 03/24/17 18:30 03/24/17 18:30 03/23/17 21:00 Cor: RSR, No murmurs, No gallops Lungs: Clear to P&A Abd: Soft, Normal bowel sounds, No organomegaly Ext:No significant edema Abnormal Lab Results 03/24/17 09:54 Sodium 134 L Potassium 3.3 L Carbon Dioxide 13 L BUN 19 H D Home Medication List Medication Instructions Recorded Confirmed Type Efavirenz [Sustiva] 600 mg PO HS 02/11/15 03/16/17 History Lamivudine/Zidovudine [Combivir 1 each PO BID 02/11/15 03/16/17 History Tablet] Potassium Chloride [K-Dur] 20 meq PO DAILY 02/11/15 03/16/17 History Sennosides [Senna -] 1 tab PO TID 02/11/15 03/16/17 History Valsartan/Hydrochlorothiazide 1 tab PO DAILY 02/11/15 03/16/17 History [Diovan Hct 160-25 mg Tablet] Active Medications Generic Name Dose Route Start Last Admin Trade Name Freq PRN Reason Stop Dose Admin Acetaminophen 650 mg 03/16/17 20:55 03/22/17 10:37 Tylenol - PO 650 mg Q6H PRN Administration FEVER OR PAIN Atovaquone 1,500 mg 03/21/17 08:00 03/24/17 08:44 Mepron - PO 1,500 mg DAILY@0800 JANETH Administration Doxycycline Hyclate 100 mg 03/24/17 18:00 03/24/17 17:58 Vibramycin - PO 100 mg BID@1000,1800 JANETH Administration Efavirenz 600 mg 03/17/17 10:00 03/24/17 10:37 Sustiva - PO 600 mg DAILY JANETH Administration Hydromorphone HCl 4 mg 03/21/17 21:23 03/24/17 01:44 Dilaudid - PO 4 mg Q6H PRN Administration PAIN Lamivudine/Zidovudine 1 tablet 03/16/17 22:00 03/24/17 10:36 Combivir Tablet 150/300 - PO 1 tablet BID JANETH Administration Levetiracetam 500 mg 03/16/17 22:00 03/24/17 10:37 Keppra - PO 500 mg BID JANETH Administration Mirtazapine 15 mg 03/18/17 22:00 03/23/17 21:23 Remeron - PO 15 mg HS JANETH Administration Pantoprazole Sodium 40 mg 03/17/17 10:00 03/24/17 10:37 Protonix - PO 40 mg DAILY JANETH Administration Senna 1 tab 03/16/17 22:00 03/23/17 21:23 Senna - PO 1 tab HS JANETH Administration Valsartan 160 mg 03/17/17 10:00 03/24/17 10:36 Diovan - PO 160 mg DAILY JANETH Administration A/P 76 yo F w a h/o HIV, CAD s/p stent, CHF, hypertension, dyslipidemia, COPD, diabetes, who presents to the emergency department for persistent vomiting with generalized weakness. Also with fevers/shaking chills anemia/leukopenia due to aids/ ? opportunsic infection b12/folate nl retic/ldh/hapto--nl cd4--184 esr-95 ct a/p unrevealing afb/fungal cx pending Chest CT shows RML infiltrate ? acute pneumonia fever curve improved patient reluctant to get blood draws, invasive tests. wants to be left alone. wants us to discuss with her daughter. will discuss with PMD and daughter
[2017-03-24] MEDS: MIRTAZAPINE 15 MG TABLET (FP) PO SCH (22:21)
[2017-03-24] MEDS: SENNOSIDES 8.6MG TABLET (FP) PO SCH (22:21)
[2017-03-24] MEDS: ACETAMINOPHEN 325 MG TABLET (FP) PO PRN (23:16)
[2017-03-25] MEDS ORDERED: PT OWN MED DRAWER 7, Y5N ONE (08:39)
[2017-03-25] MEDS: ATOVAQUONE 750 MG/5 ML (UNIT-DOSE PACKAGING) PO SCH (08:46)
--- NOTE | 2017-03-25 09:14 | PN ---
Progress Note (short form) - Note Progress Note: No significant clinical change. No acute events overnight. Afebrile. Intake & Output 03/22/17 03/23/17 03/24/17 03/25/17 23:59 23:59 23:59 23:59 Intake Total 1150 2031 1265 Output Total 1 Balance 1149 2030 1265 Weight 106 lb 6 oz Last Vital Signs Temp Pulse Resp BP Pulse Ox 97.5 F L 80 18 140/76 98 03/25/17 06:10 03/25/17 06:10 03/25/17 06:10 03/25/17 06:10 03/24/17 21:00 Active Medications Acetaminophen (Tylenol -) 650 mg PO Q6H PRN PRN Reason: FEVER OR PAIN Last Admin: 03/24/17 23:16 Dose: 650 mg Atovaquone (Mepron -) 1,500 mg PO DAILY@0800 [facility] Last Admin: 03/25/17 08:46 Dose: 1,500 mg Doxycycline Hyclate (Vibramycin -) 100 mg PO BID@1000,1800 [facility] Last Admin: 03/24/17 17:58 Dose: 100 mg Efavirenz (Sustiva -) 600 mg PO DAILY [facility] Last Admin: 03/24/17 10:37 Dose: 600 mg Hydromorphone HCl (Dilaudid -) 4 mg PO Q6H PRN PRN Reason: PAIN Last Admin: 03/24/17 01:44 Dose: 4 mg Lamivudine/Zidovudine (Combivir Tablet 150/300 -) 1 tablet PO BID [facility] Last Admin: 03/24/17 22:21 Dose: 1 tablet Levetiracetam (Keppra -) 500 mg PO BID [facility] Last Admin: 03/24/17 22:21 Dose: 500 mg Mirtazapine (Remeron -) 15 mg PO HS [facility] Last Admin: 03/24/17 22:21 Dose: 15 mg Pantoprazole Sodium (Protonix -) 40 mg PO DAILY [facility] Last Admin: 03/24/17 10:37 Dose: 40 mg Senna (Senna -) 1 tab PO HS [facility] Last Admin: 03/24/17 22:21 Dose: 1 tab Valsartan (Diovan -) 160 mg PO DAILY [facility] Last Admin: 03/24/17 10:36 Dose: 160 mg Gen: NAD at rest Heart: RRR Lung: few scattered rhonchi Abd: soft, nontender Ext: no edema Laboratory Results - last 24 hr 03/24/17 09:54 Sodium 134 L Potassium 3.3 L Chloride 105 Carbon Dioxide 13 L Anion Gap 16 BUN 19 H D Creatinine 0.8 Random Glucose 100 D Calcium 8.7 A/P HIV RML Pneumonia Leukopenia Hypokalemia - Doxycycline - Doubt bronchoscopy/BAL would be diagnostic/helpful given the minimal changes noted on CT imaging - O2 as needed - ART per ID - aspiration precautions - Inhaled bronchodilators - DVT prophylaxis - D/C planning Dr Colby
[2017-03-25] MEDS: VALSARTAN 160 MG TABLET (UD) PO SCH (09:18)
[2017-03-25] MEDS: DOXYCYCLINE HYCLATE 100 MG CAPSULE PO SCH (09:18)
[2017-03-25] MEDS: EFAVIRENZ 600 MG TABLET PO SCH (09:18)
[2017-03-25] MEDS: PANTOPRAZOLE 40 MG TABLET (FP) PO SCH (09:18)
[2017-03-25] MEDS: levETIRAcetam 500 MG TABLET (FP) PO SCH (09:18)
[2017-03-25] MEDS: lamiVUDine/ZIDOVUDINE 150/300 1 COMBO TABLET PO SCH (09:18)
[2017-03-25 15:08] VITALS: BP 142/69; PULSE 74; TEMP 99.2
[2017-04-05 12:43] LABS: HAPTOGLOBIN 193
== END 2017-03-25 15:19 | DRG 975 ==
LOC: JER 14:57 → JERBED 17:45 → J8W 03-17 00:33
PROVIDERS: ADMIT Family Medicine; ATTEND Family Medicine
DX: B20 Human immunodeficiency virus [HIV] disease (principal); G93.41 Metabolic encephalopathy; N13.39 Other hydronephrosis; J18.9 Pneumonia, unspecified organism; J45.909 Unspecified asthma, uncomplicated; J44.9 Chronic obstructive pulmonary disease, unspecified; E11.9 Type 2 diabetes mellitus without complications; E78.5 Hyperlipidemia, unspecified; R56.9 Unspecified convulsions; G62.9 Polyneuropathy, unspecified; E87.6 Hypokalemia; M50.20 Other cervical disc displacement, unspecified cervical region; I25.10 Atherosclerotic heart disease of native coronary artery without angina pectoris; D64.9 Anemia, unspecified; I11.0 Hypertensive heart disease with heart failure; K21.9 Gastro-esophageal reflux disease without esophagitis; Z85.3 Personal history of malignant neoplasm of breast; Z95.5 Presence of coronary angioplasty implant and graft; Z88.0 Allergy status to penicillin; D72.819 Decreased white blood cell count, unspecified; Z87.891 Personal history of nicotine dependence; Z86.73 Personal history of transient ischemic attack (TIA), and cerebral infarction without residual deficits; Z66 Do not resuscitate
CPT/HCPCS: 36415; 71010-TC; 71250-TC; 72100-TC; 72128-TC; 72131-TC; 73523-TC; 74176-TC; 76705-TC; 80048; 80053; 80061; 81003; 81015; 82150; 82565; 82607; 82668; 82728; 82746; 82747; 83010; 83036; 83540; 83550; 83615; 83690; 83721; 84155; 84156; 84157; 84165; 84439; 84443; 85014; 85025; 85027; 85384; 85610; 85651; 85730; 86140; 86359; 86360; 86738; 86880; 87040; 87086; 87102; 87116; 87210; 87900; 87901; 87906; 88300-TC; 93005; 93010; 97116-GP; 97162-PG; 99285-25; Q9967

== ENCOUNTER → 2017-04-07 | Emergency (ER) | payer OTHER ==
[~2017-04-07] MED LIST: ACETAMINOPHEN 1000 MG/100 ML VIAL (NON FORMULARY) IVPB ONE; ACETAMINOPHEN INJECTION 100 ML IVPB ONE; SODIUM CHLORIDE 1,000 ML IV SCH
[2017-04-07 13:18] VITALS: TEMP 98.4; BMI 23.8
--- NOTE | 2017-04-07 13:29 | PDOC ---
History of Present Illness - General History Source: Patient Exam Limitations: No Limitations - History of Present Illness Initial Comments: 04/07/17 13:38 The patient is a 76 year old female, BIBA from [place] with a significant past medical history of breast CA, asthma, CVA, COPD, CHF, DM, HTN, HLD, HIV, diverticulitis, seizures, and neuropathy of the neck and back who presents to the emergency department with difficulty speaking and progressively worsening weakness for about 8 days. The [place] staff notes the patient having weakness starting this Wednesday, that has progressively getting worse. [place] staff alerted EMS as it appeared her weakness was not improving. [place] staff also reports the patient having slurred speech, with EMS reporting some significant speech slurring when they arrived on scene. Allergies: See Nursing Notes Past surgical history: Cardiac stent, abdominal hernia surgery x3, herniated disc surgery. Social history: Former smoker. Denies EtOH use and recreational drug use. Primary Care Physician: <Ahmet Castanon - Last Filed: 04/07/17 13:38> <Drew Ho - Last Filed: 04/07/17 16:10> - General Chief Complaint: CVA/TIA Stated Complaint: POSSIBLE CVA Time Seen by Provider: 04/07/17 13:04 Past History <Ahmet Castanon - Last Filed: 04/07/17 13:38> - Past Medical History Anemia: No Asthma: Yes Cancer: Yes (Breast) Cardiac Disorders: Yes CVA: Yes COPD: Yes CHF: Yes Diabetes: Yes GI Disorders: Yes (diverticulitsis) HTN: Yes Hypercholesterolemia: Yes HIV: Yes Suicide Attempt (Hx): No Seizures: Yes - Surgical History Abdominal Surgery: Yes (3 hernia surgery) Cardiac Surgery: Yes (1 stent 11-07-07) Orthopedic Surgery: Yes (herniated disc) - Immunization History Immunization Up to Date: No - Psycho/Social/Smoking Cessation Hx Anxiety: No Suicidal Ideation: No Smoking History: Unknown if ever smoked Have you smoked in the past 12 months: No Number of Cigarettes Smoked Daily: 2 If you are a former smoker, when did you quit?: 1998 Information on smoking cessation initiated: No Hx Alcohol Use: No Drug/Substance Use Hx: No Substance Use Type: None Hx Substance Use Treatment: No <Drew Ho - Last Filed: 04/07/17 16:10> - Past Medical History Allergies/Adverse Reactions: Allergies Allergy/AdvReac Type Severity Reaction Status Date / Time levofloxacin [From Levaquin] Allergy Unknown Verified 03/16/17 14:58 Penicillins Allergy Unknown Verified 03/16/17 14:58 phenytoin sodium Allergy Unknown Verified 03/16/17 14:58 [From Dilantin] phenytoin sodium extended Allergy Unknown Verified 03/16/17 14:58 [From Dilantin] sulfamethoxazole Allergy Unknown Verified 03/16/17 14:58 [From Bactrim] trimethoprim [From Bactrim] Allergy Unknown Verified 03/16/17 14:58 morphine Allergy Verified 03/16/17 14:58 potassium chloride Allergy Verified 03/16/17 14:58 Home Medications: Ambulatory Orders Efavirenz [Sustiva] 600 mg PO HS 02/11/15 Lamivudine/Zidovudine [Combivir Tablet] 1 each PO BID 02/11/15 Potassium Chloride [K-Dur] 20 meq PO DAILY 02/11/15 Sennosides [Senna -] 1 tab PO TID 02/11/15 Valsartan/Hydrochlorothiazide [Diovan Hct 160-25 mg Tablet] 1 tab PO DAILY 02/11 Levetiracetam [Keppra -] 750 mg PO BID #60 tablet 02/14/15 Pantoprazole Sodium [Protonix] 40 mg PO DAILY #60 tablet. 10/12/15 Zolpidem Tartrate [Ambien] 10 mg PO HS PRN #10 tablet 10/12/15 Lidocaine 5% Patch [Lidoderm -] 1 patch TP DAILY #30 patch 01/11/16 Ondansetron [Zofran Odt -] 4 mg SL TID #30 od.tablet 03/10/17 Acetaminophen [Tylenol .Regular Strength -] 650 mg PO Q6H PRN #0 tablet Hydromorphone [Dilaudid -] 4 mg PO Q6H PRN #0 tablet MDD 6 03/25/17 Lamivudine/Zidovudine 150/300 [Combivir Tablet 150/300 -] 1 tablet PO BID tablet 03/25/17 Levetiracetam [Keppra -] 500 mg PO BID tablet 03/25/17 Mirtazapine [Remeron -] 15 mg PO HS tablet 03/25/17 Sennosides [Senna -] 1 tab PO HS tablet 03/25/17 Valsartan [Diovan] 160 mg PO DAILY tablet 03/25/17 Review of Systems - Review of Systems Able to Perform ROS?: No (dysarthria) <Drew Ho - Last Filed: 04/07/17 16:10> *Physical Exam - Vital Signs Last Vital Signs Temp Pulse Resp BP Pulse Ox 98.4 F 108 H 20 124/68 100 04/07/17 13:00 04/07/17 13:00 04/07/17 13:00 04/07/17 13:00 04/07/17 13:00 - Physical Exam Comments: 04/07/17 13:38 GENERAL: The patient is awake, alert, and oriented x 2, in no acute distress. HEAD: Normal with no signs of trauma. EYES: Pupils equal, round and reactive to light, extraocular movements intact, sclera anicteric, conjunctiva clear with no pallor. ENT: Ears normal, nares patent, oropharynx clear without exudates. Moist mucous membranes. NECK: Normal range of motion, supple without lymphadenopathy, JVD, or masses. LUNGS: Breath sounds equal, clear to auscultation bilaterally. No wheeze/ crackles. HEART:+slight tachycardia Regular rate and rhythm, normal S1 and S2 without murmur or rub. ABDOMEN: Diffuse abdominal discomfort (left more than right). Possible distended bladder to the umbilicus.Soft/nondistended. BS wnl. No guarding or rebound. No palpable masses. No hepatosplenomegaly. EXTREMITIES: Normal range of motion, no edema. No clubbing or cyanosis. No cords , erythema, or tenderness. NEUROLOGICAL: Right side aphasia. Dysarthric speech. Cranial nerves II through XII grossly intact. PSYCH: Normal mood, normal affect. SKIN: Warm, Dry, normal turgor, no rashes or lesions noted. <Ahmet Castanon - Last Filed: 04/07/17 13:38> - Vital Signs Last Vital Signs Temp Pulse Resp BP Pulse Ox 98.4 F 108 H 20 124/68 100 04/07/17 13:00 04/07/17 13:00 04/07/17 13:00 04/07/17 13:00 04/07/17 13:00 <Drew Ho - Last Filed: 04/07/17 16:10> Heart Score/ECG Review #1 ECG reviewed & interpreted by me at: 13:49 General ECG Interpretation: Sinus Rhythm, Normal Rate (106), Normal Intervals ( qtc 462), No acute ischemic changes <RandennysdarylDrew - Last Filed: 04/07/17 16:10> ED Treatment Course - LABORATORY CBC & Chemistry Diagram: 04/07/17 14:55 04/07/17 14:55 - RADIOLOGY Radiology Studies Ordered: Category Date Time Status HEAD CT (STROKE) [CT] Stat CT Scan 04/07/17 13:07 Taken CHEST X-RAY PORTABLE* [RAD] Stat Radiology 04/07/17 13:12 Ordered <RandennysdarylDrew - Last Filed: 04/07/17 16:10> Medical Decision Making - Medical Decision Making 04/07/17 13:30 A portion of this note was documented by scribe services under my direction. I have reviewed the details of the note, within reason, and agree with the documentation with the following case summary and management plan written by me. 76-year-old female arrived with EMS initially with reports of dysarthria noted at 11 AM this morning. Code burns was activated, patient was noted to have diffuse weakness and dysarthria. Glucose was 137. Subsequent information from daughters notes that patient was admitted to rehabilitation a few months ago, 8 days ago last Wednesday patient was noted by daughters to have dysarthria and generalized weakness, this worsened over the ensuing days until Wednesday, and daughters now requested transfer for medical evaluation today 2/2 persistence of dysarthria and generalized weakness - b/l legs and arms. no falls, no reports of fevers, they do note worsening buttock wound over the last few weeks. Afebrile. Vital signs as noted. Exam as noted with dysarthria, alert and responsive to commands, but generalized weakness ? Distended bladder to the umbilicus 76-year-old female with generalized weakness and dysarthria for 8 days, here for evaluation from [facility]. Question metabolic versus infectious process, question whether she had a CVA though symptoms are bilateral/generalized, afebrile here. Stroke workup initiated based on initial history. Based on updated information, CVA on differential but not acute. Will check labs, charles for UA and possible retention reassess, discuss with Dr. Young, PMD 04/07/17 15:47 Leukopenia of 1.2, prior low was 1.9 on 03/10/17 consistent with AIDS history, hemoglobin and platelets otherwise within normal limits. Chemistries notable for mild hyponatremia and hypokalemia, acute renal insufficiency with creatinine 1.7, troponin negative. Confirmed urinary retention with 1500cc dark urine from charles. r/o UTI. Will need admission for acute obstructive renal insufficiency and hydration. Called Dr. Young, admitting for [facility]. 04/07/17 15:[address] Young: this is a hospice/palliative care patient that has refused interventions in the past. Agrees with charles, but recommends transfer back to [facility] for further monitoring as aggressive therapy is not wanted by this patient. Plan discussed with daughters, at bedside, they agree and will proceed with plan to transition care from [facility] to home hospice within the next week. <Drew Ho - Last Filed: 04/07/17 16:10> *DC/Admit/Observation/Transfer - Attestations Scribe Attestion: 04/07/17 13:39 Documentation prepared by Ahmet Castanon, acting as medical sales for Drew Ho MD. <Ahmet Castanon - Last Filed: 04/07/17 13:38> <Drew Ho - Last Filed: 04/07/17 16:10> Diagnosis at time of Disposition: Generalized weakness, Dysarthria, HIV disease, Acute renal insufficiency, Urinary retention - Discharge Dispostion Disposition: [facility] FACILITY Condition at time of disposition: Fair - Referrals Referrals: Tom Young MD [Staff Physician] - - Patient Instructions Printed Discharge Instructions: DI for Urinary Retention in Women Additional Instructions: Activity as tolerated. Stay hydrated. Your bladder was found to be blocked, so a Charles catheter was placed to relieve the urine. You were given IV fluids in the ER and will return to [facility] for further care. Continue your medications as previously prescribed by your physician. Discuss plans of care and transition plan to home with the [facility] team. Return to the emergency department for any new or concerning symptoms, particularly fever/chills, sudden confusion, vomiting or swelling.
[2017-04-07 15:05] LABS: MCH 27.6 pg (25.7-33.7); MCHC 32.7 g/dl (32.0-36.0); MEAN CELL VOLUME 84.5 fl (80-96); MEAN PLT VOLUME 7.5 fl (7.5-11.1); PLATELET COUNT 215 K/MM3 (134-434); RDW 19.8 % (11.6-15.6)
[2017-04-07 15:21] LABS: INR 1.34 (0.82-1.09); PROTHROMBIN TIME (PATIENT) 14.8 SEC (9.98-11.88)
[2017-04-07 15:22] LABS: ALK PHOS 363 U/L (45-117); ANION GAP 14 (8-16); BILIRUBIN,TOTAL 0.5 mg/dL (0.2-1.0); CALCIUM 9.4 mg/dL (8.5-10.1); CHOLESTEROL 231 mg/dL (50-200); CO2 13 mmol/L (21-32); COCKROFT - GAULT 25.7975; CREATININE 1.7 mg/dL (0.55-1.02); GLUCOSE,RANDOM 116 mg/dL (74-106); LDL CHOLESTEROL (ONLY SJRH) 153 mg/dL (5-100); SGOT/AST 90 U/L (15-37); SGPT/ALT 55 U/L (12-78); TOT PROT 8.9 g/dl (6.4-8.2); TROPONIN I < 0.02 ng/ml (0.00-0.05)
[2017-04-07 15:33] LABS: WHITE BLOOD COUNT 1.2 K/mm3 (4.0-10.0)
[2017-04-07 15:49] LABS: URINE APPEARANCE CLEAR; URINE BILIRUBIN NEGATIVE (NEGATIVE); URINE BLOOD NEGATIVE (NEGATIVE); URINE COLOR LTYELLOW; URINE GLUCOSE (UA) NEGATIVE (NEGATIVE); URINE KETONE NEGATIVE (NEGATIVE); URINE LEUK ESTERASE NEGATIVE (NEGATIVE); URINE NITRITE NEGATIVE (NEGATIVE); URINE PROTEIN NEGATIVE (NEGATIVE); URINE UROBILINOGEN NEGATIVE E.U./dl (0.2-1.0)
--- NOTE | 2017-04-07 15:55 | EKG ---
Test Reason : Blood Pressure : / mmHG Vent. Rate : 106 BPM Atrial Rate : 106 BPM P-R Int : 160 ms QRS Dur : 084 ms QT Int : 348 ms P-R-T Axes : 071 061 071 degrees QTc Int : 462 ms SINUS TACHYCARDIA OTHERWISE NORMAL ECG WHEN COMPARED WITH ECG OF 16-MAR-2017 15:47, NO SIGNIFICANT CHANGE WAS FOUND Confirmed by ZELDA ZHENG MD ([id number]) on 04/07/2017 3:54:51 PM Referred By: Confirmed By:ZELDA ZHENG MD
[2017-04-07 17:10] VITALS: BP 91/58; PULSE 87
[2017-04-07 17:15] LABS: PLATELET ESTIMATE ADEQUATE (NORMAL)
[2017-04-07 17:19] LABS: ANISOCYTOSIS 1+; POIKILOCYTOSIS 1+
[2017-04-07 17:20] LABS: OVALOCYTES 1+
== END ==
LOC: JER 13:00
PROC: 3E033NZ Introduction of Analgesics, Hypnotics, Sedatives into Peripheral Vein, Percutaneous Approach (ICD-10-PCS; principal; 2017-04-07)
PROC: 3E0337Z Introduction of Electrolytic and Water Balance Substance into Peripheral Vein, Percutaneous Approach (ICD-10-PCS; 2017-04-07)
DX: R53.1 Weakness (principal); R47.1 Dysarthria and anarthria; Z21 Asymptomatic human immunodeficiency virus [HIV] infection status; N28.9 Disorder of kidney and ureter, unspecified; Z85.3 Personal history of malignant neoplasm of breast; J44.9 Chronic obstructive pulmonary disease, unspecified; I50.9 Heart failure, unspecified; E11.9 Type 2 diabetes mellitus without complications; I10 Essential (primary) hypertension; Z87.891 Personal history of nicotine dependence
CPT/HCPCS: 36415; 70450-TC; 71010-TC; 80053; 81003; 82465; 82550; 83718; 83721; 84478; 84484; 85025; 85610; 86850; 86900; 86901; 93005; 93010; 96361; 96374; 99285-25